=== PATIENT | female | born 1940 | race Caucasian/White ===

== ENCOUNTER → 2017-07-29 11:50 | Outpatient (CLI) | payer MEDICARE, OTHER, SELFPAY | PROVIDERS: Visit Provider Obstetrics & Gynecology | DX: Z87.440 Personal history of urinary (tract) infections (principal) | CPT/HCPCS: 87086 ==

== ENCOUNTER 2018-02-07 16:01 | Emergency (ER) | payer MEDICARE, OTHER, SELFPAY ==
[2018-02-07 16:02] VITALS: BP 163/91; PULSE 86; RESP 16; TEMP 36.3; O2SAT 98; BMI 21.4
--- NOTE | 2018-02-07 16:39 | ED.VISSUMM ---
- ER Visit Summary Date of Service: 02/07/18 Chief Complaint: Fall History of Present Illness: The patient is a 77 F who presents after a fall. She was out walking when she tripped and fell forward onto concrete striking left side of her head. There was no loss of consciousness. No amnesia. She states she stood up out just as quick as I fell. She has been able to ambulate without difficulty. She complains of slight headache. No vomiting. She is not anticoagulated. She does have a laceration above her left eyebrow. Physical Examination: Afebrile vitals are stable There is a 1 x 1 cm V-shaped laceration above left eyebrow and a second 2 cm linear laceration GCS of 15 with no focal or lateralizing neurological deficits Heart regular rate and rhythm Lungs are clear Abdomen soft Test Results: Deferred Emergency Department Course and Treatment: Patient has a GCS of 15 she is not anticoagulated she denies having headache or vomiting. I discussed with her that as she is over the age of 67 clinical decision rules could not be used to say that she does not require imaging however my clinical suspicion for clinically significant traumatic brain injury is very low. We discussed risks and benefits of imaging and return precautions. Patient would prefer to defer on any imaging at this time. She does understand return for new or worsening symptoms was given clear return precautions and signs and symptoms to monitor for. Her laceration was anesthetized with local lidocaine and closed with a total of 7 simple interrupted 5-0 nonabsorbable sutures. She was instructed on wound care. She understands to return for new or worsening symptoms and was discharged home. Treatment Plan: [] Disposition: Discharge Impression: Post head injury Facial laceration This note was generated with [employer] dictation software. It may contain incorrect words, spelling, and punctuation that were not noted in review of the chart prior to signing ED Disposition - Plan for ED Patient: Chief Complaint: Laceration Referrals: Florina Dai MD [Primary Care Provider] -
--- NOTE | 2018-02-07 16:42 | ED.DEP ---
ED Disposition - Plan for ED Patient: Chief Complaint: Laceration Instructions: ED Laceration Facial Sutr Tape Referrals: Florina Dai MD [Primary Care Provider] -
== END 2018-02-07 16:53 | disposition home or self-care (01) ==
PROVIDERS: Emergency Provider Emergency Medicine; Family Provider Family Medicine; PCP Family Medicine
DX: S01.81XA Laceration without foreign body of other part of head, initial encounter (principal); W01.0XXA Fall on same level from slipping, tripping and stumbling without subsequent striking against object, initial encounter; Y93.01 Activity, walking, marching and hiking; Y92.89 Other specified places as the place of occurrence of the external cause; Y99.8 Other external cause status
CPT/HCPCS: 12013; 99283

== ENCOUNTER 2019-08-17 11:30 | Outpatient (RCR) | payer MEDICARE, OTHER, SELFPAY ==
--- NOTE | 2019-07-06 11:48 | HP.PTEVAL ---
Patient's Visit Information DIEGO KNOTT is a 78 year old F referred to Physical Therapy by Aaron Ross MD with a diagnosis of Right Knee Pain. Date of Evaluation: 07/06/19 Physical Therapist: Bibi Zavala DPT - Visit Plan Frequency: 2x /Week Duration: 4 Weeks Plan: Focus on LE and core strength/stabilization- US as modality as needed - Subjective Findings: Patient reports that she has been having trouble with her right knee- pain with function but does not stop her from doing anything. Has had x-rays which were negative. She has a puppy so she is walking him on hard pavement. No specific injury or falls. Pain is located on the medial joint line and distal. Describes the pain as dull and achy. The day the pain hit about a week ago she could not walk but now its getting better and better. Worst: 4/10 Agg: walking the puppy. She does square dance but has not tried that. Eases: sitting down, getting off of the knee. Best: 0/10. No N/T in the LE- Has never had an injury to this leg before. Does have back problems- that has been consistent- has a herniated disc and if she overdoes- the pain radiates to the left leg- always aware of back pain on the right but no serious flares recently. PMHx: none Meds: none. - Objective Posture: fair throughout- mild FH, RS if sitting for longer than a few minutes. Gait: no deviation noted. Stairs: asc/desc 8 recip - decreased control with descent. HR/TR: able with slight discomfort with TR. SLS: 15 sec without LOB. Palpation: tender along medial joint line. ROM: 0-125 degrees. Strength: Ankle: 5/5, Knee: 4+/5 Hip: 4+/5 Core: fair. Flex: HS: moderate, Gastroc: moderate. Special Test: Bhargav: positive - Goals Goal 1:: Patient will be I with HEP and progression Goal Time Frame: 4-6 Weeks Goal 2:: Patient will asc/desc 8 stairs recip with good control with descent Goal Time Frame: 4-6 Weeks Goal 3:: Patient will report 0/10 pain with all normal ADL's. Goal Time Frame: 4-6 Weeks Goal 4:: Patient will demo 5/5 strength in LE Goal Time Frame: 4-6 Weeks - Rehabilitation Potential Physical Therapy Diagnosis: Patient presents with hypomobility- she has decreased strength, flex and muscular endurance leading to decreased ability to perform ADL's without pain Rehabilitation Potential: Good - Anticipated Interventions Patient/Client Instruction: Educate patient on: Benefits of Fitness Program Therapeutic Exercise to Include: Strength training, Endurance training, Balance training, Coordination, Agility training, Body mechanics, Postural training, Flexibilty training, Gait and locomotor training, Passive ROM, Active ROM, Dynamic Lumbar Stabilization, Scapular Strength/Stabilization For the Purpose of:: To improve muscle performance and motor function TENS: Yes Cryotherapy (ice pack, ice massage): Yes Thermo therapy (hot pack): Yes Ultrasound (thermal/non thermal): Yes For the Purpose of:: To decrease pain Thank you for the opportunity to evaluate your patient. For Medicare and Medicare HMO plans, please review the plan of care and approve it. It will need to be FAXED BACK to us at [phone] for Medicare purposes. For Medicare only, by signing this I certify the plan of care. Please let me know if there are questions or concerns regarding this plan of care. Physician Signature: Date:
--- NOTE | 2019-07-29 12:47 | HP.PTREVAL_ITS ---
Aaron Ross MD, It has been my pleasure to treat DIEGO KNOTT over the last 9 visits for Right Knee Pain. Please see the progress note below for an update on the physical therapy plan of care! Subjective: Better if keep moving. Pain lately is minimal most days. Some days worse than others. Bad days less frequent. Thursday 4/10 pain, today is 0/10. Activities include square dancing whcih she has stopped. Sleep is OK. HEP: stretching adn ROM. and some strengthening. No concerns with them. Not scheduled with Dr. Martinez anytime soon. Objective/Function: Walks without pain or antalgia. Trasnfers off chair I iwthout UE or pain. Steps are ereciprocal without rail without pain and good ecc control. AROM is WFL adn strength is 5/5 in LE knee flexion adn ext without pain today. Plan Plan: f/u three weeks to ensure goals met without regular therapy. Check steps, gait, strength and d/c if doing well. Goals Goal 1:: Patient will be I with HEP and progression Goal Time Frame: 4-6 Weeks Goal Progress: Goal Met Goal 2:: Patient will asc/desc 8 stairs recip with good control with descent Goal Time Frame: 4-6 Weeks Goal Progress: Goal Met Goal 3:: Patient will report 0/10 pain with all normal ADL's. Goal Time Frame: 4-6 Weeks Goal Progress: Goal Met Goal 4:: Patient will demo 5/5 strength in LE Goal Time Frame: 4-6 Weeks Goal Progress: Goal Met Anticipated Interventions Patient/Client Instruction: Educate patient on: Benefits of Fitness Program Therapeutic Exercise to Include: Strength training, Endurance training, Balance training, Coordination, Agility training, Body mechanics, Postural training, Flexibilty training, Gait and locomotor training, Passive ROM, Active ROM, D ynamic Lumbar Stabilization, Scapular Strength/Stabilization For the Purpose of:: To improve muscle performance and motor function TENS: Yes Cryotherapy (ice pack, ice massage): Yes Thermo therapy (hot pack): Yes Ultrasound (thermal/non thermal): Yes For the Purpose of:: To decrease pain Please do not hesitate to contact me at [phone] by phone or if you have questions or concerns regarding this new plan of care! Sincerely, Nahum Jerald, DPT, OCS, CSCS
--- NOTE | 2019-08-17 11:46 | HP.PTDCSUM ---
HP - PT D/C Summary It has been my pleasure to treat DIEGO KNOTT under orders from Aaron Ross MD, for the diagnosis of Right Knee Pain for a total of 10 visit(s). Discharge Date: 08/17/19 Please see the following information for a summary of their discharge status. - Subjective Subjective: Been doing really well. Been doign exercises 2x/day. Feeling really good. Gradually improving. Did not have pain for a number of days. Last two days have been worse for some reason. Not sure why. Pain is above the knee at 2-4/10 intermittently. - Pain R knee Pain Intensity (Out of 10): 4 - Overall Improvement % Improvement: 95 - Objective Objective/Function: Full AROm R knee without pain, quad mildly tight R vs L. Strength 4+/5 B knees and 4/5 hips. Has some pain with SLR but otherwise doing well. Walks normal today and steps normala nd reciprocal without pain. Pain last couple days may have been due to increased walking over the nice , pt will watch and manage this. Has maintained goals nicely over last two weeks until Thursday. - Goals Goal 1:: Patient will be I with HEP and progression Goal Progress: Goal Met Goal 2:: Patient will asc/desc 8 stairs recip with good control with descent Goal Progress: Goal Met Goal 3:: Patient will report 0/10 pain with all normal ADL's. Goal Progress: Goal Met Goal 4:: Patient will demo 5/5 strength in LE Goal Progress: Goal Met - Plan Plan: d/c to HEP adding quad stretch adn pillow between knees at night. - D/C Information Discharge Comments: Pt to contact doctor if pain returns unmanageably. If there are questions or concerns regarding this patient's physical therapy, please feel free to call me at [phone]. Thank you for the referral of this patient. Sincerely, Nahum Marques, DPT, OCS, CSCS
== END 2019-08-17 19:00 | disposition home or self-care (01) ==
LOC: PT 11:30
PROVIDERS: Family Provider Family Medicine; PCP Family Medicine; Referring Provider Family Medicine; Visit Provider Family Medicine
DX: M25.561 Pain in right knee (principal)
CPT/HCPCS: 97035; 97110; 97161; 97164; 97530

== ENCOUNTER → 2019-08-19 09:28 | Outpatient (CLI) | payer MEDICARE, OTHER, SELFPAY ==
--- NOTE | 2019-08-18 12:15 | HP.PCM_ITS ---
History and Physical Date of Admission: 08/19/19 HISTORY AND PHYSICAL - BREAST COMPLAINT ? Aurelia Marcus 1940 ? ? REFERRING PHYSICIAN: ??Aaron Ross MD ? CHIEF COMPLAINT:???Left?breast microcalcifications -?superior medial quadrant anterior depth. ? HPI: The patient is a 78 year old female with a complaint of?an abnormal ma mmogram. ?The patient had a screening mammogram on July 11, 2019 with a follow-up diagnostic?mammogram on?August 09, 2019?which demonstrated: ? IMPRESSION: SUSPICIOUS FINDING - BIOPSY SHOULD BE CONSIDERED The grouped pleomorphic calcifications in the left breast are suspicious of malignancy. ?A stereotactic biopsy is recommended. ? Prior asymmetry is no longer seen in the right breast. There are a grouped pleomorphic calcifications in the left breast superior medial quadrant anterior depth. No other significant masses, calcifications, or other findings are seen in either breast. ? The patient denies a history of breast masses. ?She does??perform a self breast exam routinely. ?She notes no skin changes. ?She denies nipple discharge. ?She notes no axillary masses. ?She notes no family history of breast problems. ?She notes no significant breast trauma or breast difficulties in the past. ? The patient is being seen by me today at the request of Dr.?Aaron Ross MD?for my opinion and advice regarding microcalcifications in her left breast.? ? PAST MEDICAL HISTORY PAST MEDICAL HISTORY Diagnosis Date ? Angular cheilitis 05/05/2017 ? Arthritis of shoulder region, right 05/20/2016 ? Chronic low back pain 05/20/2016 ? Lumbar herniated disc 05/20/2016 ? 2009, ?With pinched nerve ? Migraine without aura and without status migrainosus, not intractable 09/02/2018 ? Mixed hyperlipidemia 05/20/2016 ? Osteopenia 05/20/2016 ? Hip: ?On [place] 03/2007-04/2008, 04/2009-04/2012, 04/2015-present ? ? Plantar fasciitis 05/20/2016 ? ? PAST SURGICAL HISTORY PAST SURGICAL HISTORY Procedure Laterality Date ? COLONOSCOPY ? 07/31/2014 ? repeat 10 yrs, ?Dr. Henry ? PAST SURGICAL HISTORY OF ? 09/12/2015 ? bladder lift for incontinence ? PAST SURGICAL HISTORY OF ? 2016 ? cataracts both (Jan and Feb) ? ? CURRENT MEDICATIONS Current Outpatient Medications Medication Sig Dispense Refill ? Magnesium 200 mg tab Take by mouth. ? ? ? Cholecalciferol, Vitamin D3, 1,000 unit cap Take 1 capsule by mouth once daily. ? ? ? cyanocobalamin (VITAMIN B-12) 1,000 mcg tab Take 1,000 mcg by mouth once daily. ? ? ? Red Yeast Rice Extract 600 mg cap Take 1 capsule by mouth twice daily. ? ? ? No current facility-administered medications for this visit.? ? ALLERGIES:?Patient has no known allergies. ? PERSONAL HISTORY:? SOCIAL HISTORY Social History ? Tobacco Use ? Smoking status: Never Smoker ? Smokeless tobacco: Never Used Substance Use Topics ? Alcohol use: Yes ? ? Comment: occasional glass of red wine ? Drug use: Not on file ? FAMILY HISTORY:? FAMILY HISTORY FAMILY HISTORY Problem Relation Age of Onset ? Breast Cancer Mother ? ? Heart Failure Mother ? ? Hypertension Father ? ? Hypertension Brother ? ? Breast Cancer Maternal Aunt ? ? REVIEW OF SYMPTOMS: ??The review of systems data was entered by the nurse and reviewed by me ? REVIEW OF SYSTEMS: ?General:???The patient denies?fatigue, denies?weight loss, denies?weight gain, denies?feeling hot, and denies?feelings of cold. ?Eyes: ?The patient denies?glaucoma, NOTES?eye injury/surgery, wears?glasses or contacts. ?Ear/Nose/Throat: ?The patient denies?allergies, denies?hayfever, denies?ear infections, and denies?bloody noses. ?Cardiovascular: ?The patient denies?chest pain, denies?heart disease, denies?high blood pressure,denies?cardiac stent, denies?prior heart attack, denies?irregular heart beat, NOTES?high cholesterol, ?denies?poor circulation, denies?heart failure, other cardiac issues, denies?claudication, denies?cold feet, denies?peripheral arterial stent. ?Respiratory: ?The patient denies?tuberculosis, denies?pneumonia, denies?frequent cough, denies?pulmonary embolism, denies?shortness of breath, and denies?coughing up blood. ?Gastrointestinal: ?The patient denies?difficulty swallowing, denies?acid reflux, denies?ulcers, denies?vomiting, denies?jaundice/hepatitis, denies?gallbladder problems, denies?black or tarry stools, denies?hemorrhoids, denies?bleeding from rectum, denies?diverticulitis, denies?constipation, denies?diarrhea, denies?loss of stool control, and denies?hernias. ?Kidney/Bladder: ?The patient denies?kidney stones, denies?urine infections, and denies?bloody urine. ?Skin: ?The patient denies?a history of skin cancer, denies?bleeding/changing moles, and denies?a history of skin rash. ?Neurologic: ?The patient denies?a history of epilepsy/convulsions, NOTES?headaches, denies?head/spinal injuries, and denies?stroke/TIA. ?Psychiatric: ?The patient denies?psychiatric medications, denies?depressio n, and denies?voices, denies?substance abuse. ?Endocrine: ?The patient denies?thyroid disorders, denies?diabetes, and denies?hormonal problems. ?Hematologic: ?The patient denies?a history of bruising, denies?bleeding, and denies?anemia, denies?blood clots. ?Infections: ?The patient NOTESa history of measles and mumps,?denies?rheumatic fever, and denies?sexually transmitted diseases. ?Musculoskeletal: ?The patient NOTES?back pain/injury, denies?back problems, denies?sciatica, NOTES?knee/foot trouble, denies?arthritis, or denies?gout. ? ? ? PHYSICAL EXAMINATION: ? General: ?The patient is 78 year old female, well nourished, well hydrated in no acute distress. ?The patient is oriented to time, place, and person. ? VITALS:?Blood pressure 118/58, pulse 85, temperature 36.2 ?C (97.2 ?F), temperature source Temporal, resp. rate 14, height 152.4 cm (5'), weight 49.4 kg (109 lb), SpO2 97 %.?Body mass index is 21.29 kg/m?.? ? HEENT: ?Normal cephalic, ataumatic, pupils are equally round, sclera are anicteric, mucous membranes are moist, oropharynx is clear. ?Neck has no masses, asymmetry or lymphadenopathy. ?Thyroid is unremarkable. ? Respiratory: ?Clear to auscultation and percussion. ?Normal respiratory excursion and pattern. ? Cardiac: ?Examination is regular rate and rhythm. ? Abdominal exam: ?Soft, nontender, ?with no palpable masses. ?No hepatosplenomegaly. ?No palpable hernias. ? Rectal exam: ?exam deferred Extremities: ?no clubbing, cyanosis or edema. ?No adenopathy. ? Breast: ?Visual inspection reveals no retractions, nipple inversion, or skin changes. ?Palpation of the right breast reveals no dominant or suspicious masses. ?Palpation of the left breast reveals no dominant or suspicious masses. ?Axillary exam demonstrates no suspicious masses in either the left or right axilla. ?There is no nipple discharge expressed from either the left or right breast. ? LABORATORY VALUES: As Noted ? RADIOLOGIC STUDIES: ?As Noted ? Assessment ? IMPRESSION:?Left breast microcalcifications ? PLAN:??I plan to perform a?stereotactic biopsy of the left breast. ?The planned surgical procedure was discussed extensively with the patient. ?The risks, benefits, anticipated outcomes and possible complications were mentioned. ?My staff has also explained the procedure in understandable terms and the patient was given the option to take printed material concerning the planned procedure. ?The patient had the opportunity to ask questions concerning the planned procedure. ?The patient freely consents to the planned procedure. ? Diagnoses:?(R92.8) Abnormal finding on breast imaging ?(primary encounter diagnosis) ? My findings have been communicated to Dr.??Aaron Ross MD?via shared medical record. ?This note will be forwarded to Dr. Aaron Ross MD. ? Return to Clinic: The patient is instructed to follow-up with me?after the testing has been completed. ? Gato Waters MD
--- NOTE | 2019-08-19 | IMM_PTH ---
PATIENT: DIEGO KNOTT LOC: [facility] U#:[id number] AGE/SX: 84/F ROOM: RE08/19/[address]: Dr. Gato Waters MD : 1940 BED: DIS: SPEC #: [id number] RECD: 08/22/19 14:17 STATUS: BASSAM REQ #: [id number] [facility]: 08/19/19 00:[address]: Gato Waters DEPT: IMMUNOHISTOCHEMISTRY RECD BY: Evelyne Jeong ENTERED: 08/22/19 14:18 SP TYPE: IMMUNO OTHR DR: Dr. Aaron Ross MD Tissues: Left breast, NOS Procedures: CALPONIN-1 (add) CK8 (add) E-CAD (add) HER2 CHRISTOPHER (add) TN (add) P40 (add) ER (initial) PHYSICIAN & INSTITUTION [place] [id number] SPECIMEN INFORMATION: Tissue Source: Left breast, stereotactic core biopsy Clinical Info: Left superior medial breast microcalcifications Specimen Number: [id number] #1 CPT code: 27468, 11995 x3, 49562 x3 METHODOLOGY: Deparaffinized sections of prefer/formalin-fixed tissue or PAP/DQ stained slides are incubated with monoclonal/polyclonal antibodies/oligonucleotide probes. Localization is made via biotin free immunoperoxidase method. Appropriate controls are performed and reacted as expected. Results on target cell population are indicated in the following table: RESULTS: ANTIBODY / CLONE RESULT Block 1 E-Cad (ECH-6) positive CK8 ([id number]) positive Calponin-1 (RV009B) positive P40 (BC28) positive MORPHOMETRIC ANALYSIS ER (clone 6F11) positive (>95%, strong intensity) TN (clone 16/1E2) positive (90%, moderate intensity) Her-2Neu (clone CB11) negative (0) The prognostic test for HER2 is performed on formalin-fixed paraffin embedded tissue. A 3+ (positive) staining pattern is defined as intense, homogeneous, complete, circumferential membranous staining in >10% of contiguous tumor cells. A similar weak (2+) staining pattern is interpreted as equivocal. ROSETTA follow-up testing is recommended for all equivocal cases. Positivity/negativity for ER/TN is reported if > or < 1% of the tumor cells are immuno- reactive, respectively. The ASCO/CAP criteria is used for scoring. Reference: Journal of Clinical Oncology, 2013; 31:1537-9000 & 2010; 16:5875-6620. Duration of fixation: 57 Hrs; Sample Adequate: Yes. These assays have not been validated on decalcified tissues. Results should be interpreted with caution given the likelihood of false negativity on decalcified specimens. These tests were developed and their performance characteristics determined by [facility]. They may not have been cleared or approved by the U.S. Food and Drug Administration. The FDA has determined that such clearance or approval is not necessary. The above immunohistochemical/dualISH markers are ordered and reviewed by the Pathologist. 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 SJ:ken 08/23/19
--- NOTE | 2019-08-19 10:15 | BRBX_PTH ---
PATIENT: DIEGO KNOTT LOC: [facility] U#:[id number] AGE/SX: 84/F ROOM: RE08/19/[address]: Dr. Gato Waters MD : 1940 BED: DIS: SPEC #: [id number] RECD: 08/19/19 11:33 STATUS: BASSAM RENelly #: [id number] [facility]: 08/19/19 10:[address]: Gato Waters DEPT: SURGICAL PATHOLOGY RECD BY: Zoey Ambrose ENTERED: 08/19/19 12:10 SP TYPE: BREAST BX OTHR DR: Dr. 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 Nuclear Grade - grade 2 (intermediate) Necrosis - present, central (expansive comedo necrosis). Calcifications - present See comment. CALISTA:ken 08/22/19 COMMENT Immunohistochemistry ([id number]) supports the above diagnosis. ER/CA/Swv2tao studies are being performed on sections of tumor and the results from this study will be reported separately ([id number]). MICROSCOPIC DESCRIPTION Slides are reviewed. GROSS DESCRIPTION Received is one container labeled with the patient's name and not further designated. The specimen consists of multiple elongated fragments of kendall-yellow fibroadipose tissue that in aggregate measure 5 x 3 x 0.3 cm. The entire specimen is submitted in two cassettes. / CALISTA:ken 08/19/19 TC:0 CPT: 48962
--- NOTE | 2019-08-19 12:39 | OP.PCM_ITS ---
Report of Operation Date of Procedure: 08/19/19 Pre-Operative Diagnosis: left breast micro- calcifications Post-Operative Diagnosis: successful stereotactic biopsy of left breast microcalcifications Surgery/Procedure Performed:: left stereotactic breast biopsy with vacuum- assisted core needle biopsy, specimen radiograph and marker placement family services coordinator: None Type of Anesthesia:: Local Specimen's removed: left breast tissue Description of Procedure: The patient was brought to the stereotactic suite and informed of the plan course of events. The left breast was positioned in the CC approach on the Hackett stereotactic table. Mammographic image demonstrated the area of abnormality to be located in the center of the radiograph. Stereotactic images were then obtained which demonstrated good positioning of the abnormality for biopsy with good stroke leela parameters. The breast was cleaned with Betadine area did one percent lidocaine was used to anesthetize the skin and a small stab incision made. An 8-gauge mammotome needle was placed into the pre-fire position. Stereotactic images demonstrated good positioning around the planned biopsy site. Local anesthetic injected deeply in the breast. The needle was deployed. Post deployment images demonstrated good positioning of the planned biopsy site. Multiple vacuum-assisted samples were obtained and [id number] fashion. Specimen radiograph demonstrated micro-calcifications in the sample. A gel marker clip was deployed. Post biopsy images demonstrated good position of the clip relative the biopsy cavity. The breast was removed from compression. suture was placed to help close the slightly gaping wound and then Steri-Strips and a dressing applied. Post procedure mammogram images were obtained.
== END ==
PROVIDERS: PCP Family Medicine; Referring Provider Surgery; Visit Provider Surgery
DX: R92.8 Other abnormal and inconclusive findings on diagnostic imaging of breast (principal)
CPT/HCPCS: 19081; 88305; 88341; 88342; J7050

== ENCOUNTER 2019-10-20 07:30 | Day surgery (SDC) | payer MEDICARE, OTHER, SELFPAY ==
[2019-09-14 14:16] VITALS: BMI 21.4
--- NOTE | 2019-10-20 | BREAST_PTH ---
PATIENT: DIEGO KNOTT LOC: [facility] [place] U#:[id number] AGE/SX: 78/F ROOM: RE10/20/[address]: Dr. Shen Jacob MD : 1940 BED: DIS: 10/20/2019 SPEC #: [id number] RECD: 10/20/19 11:01 STATUS: BASSAM NAVDEEP #: [id number] [facility]: 10/20/19 00:[address]: Shen Jacob DEPT: SURGICAL PATHOLOGY RECD BY: Kenyon Billings ENTERED: 10/20/19 11:01 SP TYPE: BREAST OTHR DR: Dr. 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 See cancer checklist below. AM:ken 10/26/19 COMMENT DUCTAL CARCINOMA IN SITU SUMMARY: Procedure: excision with wire guidance Specimen: Type - partial breast (lumpectomy) Size - 6 x 4.5 x 2.5 cm Laterality - left breast Size (extent of DCIS): Estimated size (extent) - 8 mm in greatest dimension Number of blocks - 4 of 10 blocks Architectural pattern - cribriform and solid Nuclear grade - 3 Necrosis - comedo, focal Margin - uninvolved by in situ carcinoma. Distance of closest margin - 2 mm from anterior margin Regional lymph nodes - not submitted Microcalcifications - present in neoplastic and non-neoplastic tissue. Additional Pathologic Findings - fibrocystic change, intraductal hyperplasia with focal atypical intraductal hyperplasia. Ancillary Studies from previous specimen ([id number] / [id number]): ER - positive (>95%, strong intensity) VT - positive (90%, moderate intensity) Her2 carlin (IHC) - negative by IHC Clinical history - left breast microcalcifications. Pathologic Staging: Tis(DCIS) Nx Mx The above summary is in compliance with [employer] (CAP) Cancer Protocols Checklist and [place] Joint Committee on Cancer (AJCC), Staging Manual, 8th Ed. Case has been reviewed in consultation with Dr. Lozano who concurs with the above diagnosis. IDC:SJ MICROSCOPIC DESCRIPTION Slides are reviewed. GROSS DESCRIPTION Received in fixative is one container labeled with the patient's name and designated left breast lumpectomy. The specimen consists of a wire-guided fragment of kendall-yellow fibrofatty tissue measuring 6 x 4.5 x 2.5 cm and weighing 24 gm. The specimen has been oriented by the surgeon and differentially inked as follows: anterior - yellow, posterior - black, superior - blue, inferior - green, medial - red and lateral - orange. The specimen is serially sectioned in an anterior and posterior fashion to reveal yellow cut surfaces. No distinct mass lesion is identified. The specimen is left for additional fixation. / AM:ken 10/20/19 Sections reveal yellow cut surfaces. A firm, kendall-white lesion measuring 0.8 cm is present and located 0.5 mm from the anterior margin of resection. The remainder of the breast parenchyma is yellow, fatty and free of mass lesions. Sections are submitted as follows: 1 & 2 - perpendicular margins, 3 & 4 - lesion, 512 - [employer] sections of breast parenchyma adjacent to and away from lesion. / AM:ken 10/21/19 TC:0 CPT: 58945
[2019-10-20 07:55] VITALS: BP 132/71; PULSE 74; RESP 18; TEMP 36.8; O2SAT 100; BMI 20.9
--- NOTE | 2019-10-20 08:00 | BI_ITS ---
SURGICAL BREAST SPECIMEN RADIOGRAPH CLINICAL: Document presence of tissue clip marker in biopsy specimen. FINDINGS: Specimen shows presence of tissue clip marker. Electronically Signed: Matt Ramirez, at 10:37 EDT , Service support , BI/Breast Biopsy Specimen
[2019-10-20] MEDS: Lactated Ringers 1,000 ML 15 ML IV (08:06)
--- NOTE | 2019-10-20 09:15 | DCINST_ITS ---
Discharge Diet: No Restrictions Discharge Activity: May Not Drive - for 2-3 days or while taking narcotic pain meds. May shower in (days): 1 Lifting Restrictions: 10 pounds for 1 week. Call your doctor if your incision/area has: Continuous Slow Oozing, Sudden In creased Bleeding Call your doctor if you observe: Fever of 101 or Higher Suture Line Care: Avoid Pulling/Pushing, Avoid Pinching/Bending Remove Dressing in (days):: 1 - Remove bulky dressing tomorrow. May leave any opsite dressing for 3-4 days. Keep dressing in place until your follow-up appointment. Additional Dressing/Incision Instructions:: Remove bulky dressing tomorrow. May leave any opsite dressing for 3-4 days. Keep dressing in place until your follow-up appointment. Allergies/Adverse Reactions: Allergies No Known Allergies Allergy (Verified 10/18/19 09:40) Medications to take at Discharge Red Yeast Rice 1,200 mg PO DAILY 02/07/18 Calcium Carbonate [Tums] 500 mg PO DAILY@0800 10/18/19 Cholecalciferol (Vitamin D3) [Vitamin D3] 25 mcg PO DAILY 10/18/19 Cyanocobalamin (Vitamin B-12) [Vitamin B-12] 1,000 mcg PO DAILY 10/18/19 Ibuprofen [Advil] 200 mg PO PRN PRN 10/18/19 Magnesium Oxide [Magnesium] 400 mg PO DAILY 10/18/19 Primary Care Physician: Aaron Ross MD [Primary Care Provider] - Please Follow Up With: Shen Jacob MD When: [phone] Office f/u one week, Virtual if possible
--- NOTE | 2019-10-20 09:16 | OP.PCM_ITS ---
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 Wire localized lumpectomy upper inner left breast Description of Surgical Findings:: Timeout and informed consent was obtained. 78-year-old female was taken to the stereotactic unit placed prone on table. The left breast was placed in a medial lateral view. A marking clip and microcalcifications identified. Stereotactic images were obtained. Digital information was obtained on a single target site. The breast was prepped with Betadine. 1% lidocaine was used as local anesth etic. The needle was placed at depth +15 mm. Wire was displaced. On fast view was obtained demonstrating good localization. The wire was secured. The patient had a cc view obtained. Sterile dressings were applied. She was subsequently taken to the operating for planned definitive surgery. The patient was subsequently taken to the operating room. She underwent general anesthesia. Left breast was sterilely prepped and draped. Transverse incision was made in the upper inner left breast. Sharp dissection carried down through the subcutaneous tissue. Electrocautery dissection was performed circumferentially completely around the wire localized area. Hemostasis was obtained with electrocautery and fokrvr-xy-rgnap suture of 3-0 Vicryl. The specimen was removed. The wire exited anteriorly a suture was placed superiorly and a long suture laterally. The cavity was intact. 4 marking clips were placed at the edges of the resection of the lumpectomy. Deep tissue approximated with simple sutures of 3- 0 Vicryl. The skin edges approximated running septic or 4-0 Monocryl. Steri- Strips Telfa OpSite bulky dry dressing applied. The jesse-incisional area had been anesthetized with 30 cc of 0.5% Marcaine. Sponge and instrument and needle counts were reported the surgeon to be correct. Specimen lumpectomy. Drains none. Blood loss minimal. The patient was taken to the recovery room in satisfactory addition without apparent complication Shen Jacob M.D., F.A.C.S. Type of Anesthesia:: General Anesthesiologist: Surya Davison
--- NOTE | 2019-10-20 09:22 | HP.PCM_ITS ---
Problem List (1) Ductal carcinoma in situ (DCIS) of left breast Status: Acute History and Physical Date of Admission: 10/20/19 Intake Visit Reasons: BREAST CANCER, LEFT Practice Or Student Teacher Required: No Is patient in pain?: No Allergies No Known Allergies Allergy (Verified 09/14/19 14:12) Medications Calcium Carbonate/Vitamin D3 [Calcium 500+D Tablet Chew] 1 ea PO DAILY 09/05/15 [History Confirmed 09/14/19] Multivitamins,Ther W-Minerals [Multivitamin With Minerals (BKC)] 1 tab PO DAILY 09/05/15 [History Confirmed 09/14/19] Red Yeast Rice 1,200 mg PO DAILY 02/07/18 [History Confirmed 09/14/19] Ubidecarenone [Co Q-10] 100 mg PO DAILY 02/07/18 [History Confirmed 09/14/19] PFSH Medical History (Updated 09/14/19 @ 16:[address] Shen Jacob MD) Ductal carcinoma in situ (DCIS) of left breast (Acute) Surgical History H/O breast biopsy (Acute) History of bladder suspension procedure (Acute) S/P cataract extraction (Acute) Family History Mother Breast cancer Heart disease Father Hypertension Brother Hypertension Aunt Breast cancer Social History (Updated 09/14/19 @ 16:[address] Shen Jacob MD) Smoking Status: Never smoker alcohol intake: never HPI HPI HPI: DIEGO KNOTT, is a 78 F who presents to the office today for for ongoing surgical consultation and treatment for DCIS medial left breast. Very pleasant 78-year-old female. Her primary care physician is Dr. Aaron Ross. She is recently been thoroughly evaluated by Dr. Gato Waters. The patient did not want to go to [facility] for her definitive surgery 78-year-old female. A0. Not sure when she underwent menarche. First child was born when she was 27. She did breast-feed. No previous breast biopsies up to her recent event. Family history notable that her mother developed breast cancer at approximately age 77 as did her maternal aunt. No estrogen replacement therapy. At the [facility] on July 11, 2019 with an follow-up diagnostic mammogram August 01, 2019 there were pleomorphic calcifications medial left breast. Superior medial quadrant. On the diagnostic films a prior asymmetry seen on the right was no longer seen. Dr. Rich performed a stereotactic needle core biopsy upper inner left breast. Final pathology from that procedure date August 19, 2019 demonstrates ER greater than 95% and CO greater than 90% and HER-2 negative at 0. Ductal carcinoma in situ. Solid and cribriform. Grade 2. Necrosis present centrally. Calcifications present. On my review of the specimens he had multiple cores with calcifications present. The calcifications on the mammogram do extend over a distance. HPI HPI HPI: DIEGO KNOTT, is a 78 F who presents to the office today for ROS General General: No weight change, appetite, fatigue, colon cancer, breast cancer or weakness HEENT HEENT: No difficulty swallowing, eye injury, eye surgery, swollen glands or hoarseness Endo Endocrine: No thyroid disease, diabetes mellitus, thyroid cancer, Hair loss, heat intolerance or cold intolerance Skin Skin: No rash or changing moles Breast Breast: Yes abnormal mammogram; no left breast lump, right breast lump, nipple discharge, breast pain, abnormal US or breast enlargement Musc Musculoskeletal: No back problems, arthritis, rheumatoid arthritis, gout or joint pain Cardio Cardiovascular: No murmur, pacemaker, heart disease, atrial fibrillation, high blood pressure, heart attack, heart stent, palpitations, shortness of breat with exertion or chest pain Psych Psychiatric: No depression, anxiety or hearing voices Resp Respiratory: No shortness of breath, No sleep apnea, No cough, No COPD, No asthma, No emphysema, No wheezing Gastro Gastrointestinal: No abdominal pain, No nausea or vomiting, No diarrhea, No constipation, No blood in stool, No acid reflux, No hemorrhoids, No ulcers, No gallbladder problem, No black,tarry stools Franco Hematologic: No blood thinners, No blood disorders, No bleeding, No anemia, No blood clots Neuro Neurologic: No system reviewed and no additional complaints, except as docu, No as per HPI, No abnormal walking, No abnormal hearing, No abnormal movements, No abnormal speech, No behavioral changes, No burning sensations, No confusion, No seizure-like activity, No unsteadiness, No dizziness, No localized weakness, No frequent falls, No headache(s), No lack of coordination, No loss of vision, No memory loss, No numbness, No other visual disturbances, No radiating pain, No restless legs, No sensory deficit, No fainting, No tingling, No tremor(s), No weakness, No other Exam Const General: cooperative, healthy appearing, comfortable, no acute distress Nutritional Appearance: average body habitus Orientation: alert, awake [facility] Head: normal to inspection Chest Breast Palpation: No nipple discharge Other: Right breast: No focal mass. No nipple discharge. No axillary or clavicular adenopathy Left breast ecchymosis healed stereotactic incision upper inner left breast slight induration, no axillary or clavicular adenopathy Resp Effort & Inspection: normal respiratory effort Auscultation: clear to auscultation bilaterally Cardio Rate: regular rate Rhythm: regular rhythm Heart Sounds: no murmurs GI Palpation: soft, no hepatosplenomegaly Neuro Cognition: normal cognition Extrem General: no calf tenderness bilaterally Psych Affect: normal affect Assessment & Plan Problems 1. Ductal carcinoma in situ (DCIS) of left breast D05.12 Plan DCIS upper inner left breast. I recommend to the patient a stereotactic wire localization with 2 wires to bracket the rather generous area of microcalcifications within subsequent lumpectomy. As a result of the September 06, 2019 order by the [facility] of Health director Giana Estrada MD to cancel nonessential surgeries that would use PPE, and less special criteria are met, I have reviewed the clinical record for this patient and have determined that the schedule procedure does not meet criteria to go forward and should be canceled pursuant to director Natalie's order. The procedure will be rescheduled as soon as possible after the September 06, 2019 emergency order has been lifted We will refer the patient for medical oncology consultation and hormonal therapy while awaiting definitive surgery CC: Dr. Aaron Jacob M.D., F.A.C.S. Coding Level of Care Code Off vis,new,level 4 Diagnoses Ductal carcinoma in situ (DCIS) of left breast D05.12 The patient's health and wellbeing has been stable since her previous office vis it. We have again discussed plans for stereotactic wire localization upper inner left breast with subsequent wire localized lumpectomy. She has had an opportunity to ask and have questions answered. We will proceed as noted. She has no additional questions at this time. Shen Jacob M.D., F.A.C.S.
[2019-10-20] MEDS: Bupivacaine Mpf 0.5% 30 ML VIAL (10:00)
[2019-10-20 10:30] VITALS: BP 132/71; BP 137/72; PULSE 65; RESP 16; TEMP 36.6; O2SAT 97
[2019-10-20 10:45] VITALS: BP 132/71; BP 134/73; PULSE 62; RESP 16; O2SAT 97
[2019-10-20 11:00] VITALS: BP 119/67; BP 132/71; PULSE 66; RESP 16; O2SAT 94
[2019-10-20 11:15] VITALS: BP 121/69; BP 132/71; PULSE 62; RESP 16; TEMP 36.7; O2SAT 65
[2019-10-20 11:59] VITALS: BP 132/71; BP 133/75; PULSE 58; RESP 16; TEMP 36.2; O2SAT 96
== END 2019-10-20 12:08 | disposition home or self-care (01) ==
LOC: SDC 07:30 → AC 07:31
PROVIDERS: PCP Family Medicine; Referring Provider Surgery; Visit Provider Surgery
PROC: (CPT 19301; principal; 2019-10-20 09:15)
DX: D05.12 Intraductal carcinoma in situ of left breast (principal); R92.1 Mammographic calcification found on diagnostic imaging of breast
CPT/HCPCS: 19301; 19281; 76098; 88307; J7120; J2405

== ENCOUNTER → 2020-04-06 09:00 | Outpatient (CLI) | payer MEDICARE, OTHER, SELFPAY ==
[2020-04-06 09:27] LABS: Bacteria 0 SEEN /hpf (None Seen); Mucous, Urine 0 SEEN /hpf (<or=2+)
[2020-04-06 09:29] LABS: Color, Urine Straw (Yellow); Glucose, Dipstick Normal (Normal); Ketone-Dipstick Negative (Negative); Leukocyte Esterase-Dipstick 25 /ul (Negative); Nitrite-Dipstick Negative (Negative); Occult Blood-Urine 25 /ul (Negative); Protein-Dipstick Negative (Negative); Urine Bilirubin Dipstick Negative (Negative); Urine Clarity Clear (Clear); Urine Urobilinogen Normal (Normal)
[2020-04-06 09:41] LABS: Red Blood Cells-Urine 0-5 SEEN /hpf (0-5); Squamous Epithelial Cells - UA 0-5 SEEN /hpf (5-10); White Blood Cells 0-5 SEEN /hpf (0-5)
[2020-04-06 09:47] LABS: ALB/GLOB Ratio 1.2 RATIO (0.9-2.4); AST(SGOT) 29 U/L (15-37); Alanine Aminotransfer ALT/SGPT 29 U/L (13-56); Alkaline Phosphatase 88 U/L (45-117); Anion Gap 5 (5-15); BUN 14 mg/dL (7-18); BUN/Creat Ratio 18.4 RATIO (10-20); Calcium,Total 9.3 mg/dL (8.5-10.1); Chloride 105 mmol/L (98-107); Cholesterol 232 mg/dL (200); Creatinine, Serum 0.76 mg/dL (0.55-1.02); EST Glomerular Filtration Rate 78 mL/min (>60); Est Glom Filt Rate - Afr Amer 95 mL/min (>60); Globulin 3.3 g/dL (2.2-4.2); Glucose 94 mg/dL (74-106); High Density Lipoprotein 61 mg/dL; Potassium 4.3 mmol/L (3.5-5.1); Protein, Total 7.3 g/dL (6.4-8.2); Sodium Level 140 mmol/L (136-145); Triglycerides 103 mg/dL; Very Low Density Lipoprotein 21 mg/dL (5-40)
== END ==
PROVIDERS: PCP Family Medicine; Referring Provider Family Medicine; Visit Provider Family Medicine
DX: M85.80 Other specified disorders of bone density and structure, unspecified site (principal); G43.009 Migraine without aura, not intractable, without status migrainosus; E78.2 Mixed hyperlipidemia
CPT/HCPCS: 36415; 80053; 80061; 81001

== ENCOUNTER → 2021-04-11 08:48 | Outpatient (CLI) | payer MEDICARE, OTHER, SELFPAY ==
[2021-04-11 09:46] LABS: Hematocrit 46.5 % (37-47); Mean Corp Hgb Conc 32.3 g/dL (32-36); Mean Corpuscular Volume 86.9 fL (81-99); Mean Platelet Vol. 9.8 fl (6.2-12.0); Platelet Count 339 K/mm3 (150-450); RBC Distribution Width CV 13.2 % (11.6-14.6); RBC Distribution Width SD 42.4 fl (35.1-43.9); Red Blood Count 5.35 M/mm3 (4.2-5.4); White Blood Count 7.2 K/mm3 (4.4-11.0)
[2021-04-11 10:17] LABS: Vitamin B12 1291 pg/mL (211-911)
[2021-04-11 10:30] LABS: AST(SGOT) 25 U/L (15-37); Alanine Aminotransfer ALT/SGPT 20 U/L (13-56); Albumin, Serum 3.8 g/dL (3.2-5.0); Alkaline Phosphatase 115 U/L (45-117); Anion Gap 4 (5-15); BUN 12 mg/dL (7-18); BUN/Creat Ratio 16.4 RATIO (10-20); Calcium,Total 8.9 mg/dL (8.5-10.1); Chloride 106 mmol/L (98-107); Cholesterol 207 mg/dL (200); Creatinine, Serum 0.73 mg/dL (0.55-1.02); EST Glomerular Filtration Rate 82 mL/min (>60); Est Glom Filt Rate - Afr Amer 99 mL/min (>60); Globulin 3.8 g/dL (2.2-4.2); Glucose 90 mg/dL (74-106); High Density Lipoprotein 58 mg/dL; Potassium 3.8 mmol/L (3.5-5.1); Protein, Total 7.6 g/dL (6.4-8.2); Sodium Level 140 mmol/L (136-145); Thyroid Stim Hormone (TSH) 2.46 uIU/mL (0.358-3.74); Triglycerides 122 mg/dL; Very Low Density Lipoprotein 24 mg/dL (5-40)
[2021-04-13 16:35] LABS: Vitamin D 1,25-Dihydroxy 44.1 pg/mL (19.9-79.3)
[2021-04-16 14:58] LABS: Vitamin B1, Thiamine 147.1 nmol/L (66.5-200.0)
== END ==
PROVIDERS: PCP Family Medicine; Referring Provider Psychiatry & Neurology Neurology; Visit Provider Psychiatry & Neurology Neurology
DX: G31.84 Mild cognitive impairment of uncertain or unknown etiology (principal); E78.00 Pure hypercholesterolemia, unspecified; M85.80 Other specified disorders of bone density and structure, unspecified site
CPT/HCPCS: 36415; 80053; 80061; 82607; 82652; 82746; 84425; 84443; 85027

== ENCOUNTER → 2021-04-22 10:18 | Outpatient (CLI) | payer MEDICARE, OTHER, SELFPAY ==
--- NOTE | 2021-04-22 10:40 | MRI_ITS ---
EXAM: MR HEAD WITHOUT AND WITH INTRAVENOUS CONTRAST : 1940 CLINICAL INDICATION: Mild Cognitive Impairment TECHNIQUE: Multiplanar and multisequence MR images of the brain were obtained without and with intravenous contrast. This report was created using [employer] report generation technology. CONTRAST: IV 10mL Dotarem COMPARISON: None. FINDINGS: BRAIN AND EXTRA-AXIAL SPACES: There is a normal-variant cavum septi pellucidi and cavum vergae. No abnormal contrast enhancement. Multiple foci of increased T2 signal intensity within the cerebral white matter consistent with gliosis/chronic microvascular disease. No intra- or extra-axial hemorrhage. No evidence of acute infarct. No intracranial mass or mass effect. There is preservation of the ricci/white matter interface. Posterior fossa structures are unremarkable. Ventricles are appropriate for age. No hydrocephalus. Basal cisterns are patent. SELLA: Unremarkable. Normal sella turcica, pituitary gland, infundibular stalk, optic chiasm and hypothalamus. AUDITORY SYSTEM: Unremarkable. The internal auditory canals are patent. BONES/JOINTS: Unremarkable. No discrete lytic or blastic abnormalities. SINUSES: Unremarkable as visualized. Clear. MASTOID AIR CELLS: Unremarkable as visualized. Clear. ORBITS: Unremarkable as visualized. Both globes, extraocular muscles, optic nerves and retrobulbar fat appear unremarkable. VASCULATURE: Unremarkable as visualized. Normal flow voids in the major intracranial circulation. MRI/Brain W/WO Contrast IMPRESSION: 1. No acute intracranial abnormality. 2. Mild senescent changes. at 1220 Reported and signed by: Ulysses Oreilly MD Electronically Signed: Ulysses Oreilly MD at 12:19 EDT Tel , Service support ,
== END ==
PROVIDERS: PCP Family Medicine; Visit Provider Psychiatry & Neurology Neurology
DX: G31.84 Mild cognitive impairment of uncertain or unknown etiology (principal)
CPT/HCPCS: 70553; A9575

== ENCOUNTER 2021-07-29 13:49 | Outpatient (CLI) | payer MEDICARE, OTHER, SELFPAY ==
[2021-07-29 15:17] LABS: Erythrocyte Sedimentation Rate 9 mm/hr (0-30)
[2021-07-29 15:21] LABS: Hematocrit 42.2 % (37-47); Hemoglobin 15.1 g/dL (12.0-15.0); Mean Corp Hgb Conc 35.8 g/dL (32-36); Mean Corpuscular Volume 83.9 fL (81-99); Mean Platelet Vol. 10.5 fl (6.2-12.0); Platelet Count 331 K/mm3 (150-450); RBC Distribution Width CV 12.7 % (11.6-14.6); RBC Distribution Width SD 38.5 fl (35.1-43.9); Red Blood Count 5.03 M/mm3 (4.2-5.4); White Blood Count 8.5 K/mm3 (4.4-11.0)
== END 2021-07-29 23:59 | disposition home or self-care (01) ==
PROVIDERS: PCP Family Medicine; Referring Provider Psychiatry & Neurology Neurology; Visit Provider Psychiatry & Neurology Neurology
DX: D05.12 Intraductal carcinoma in situ of left breast (principal); R51.9 Headache, unspecified
CPT/HCPCS: 36415; 85027; 85652

== ENCOUNTER → 2022-10-16 | Outpatient (CLI) | payer MEDICARE, OTHER, SELFPAY ==
--- NOTE | 2022-10-16 11:40 | RAD_ITS ---
INDICATION: ABN CXR EXAMINATION/TECHNIQUE: X-RAY - XR Chest 2 Views COMPARISON: 09/03/2015. FINDINGS: LINES/DEVICES: None. LUNGS: Increased aeration consistent with strong inspiratory effort and/or COPD. No consolidation, edema or effusion. No pneumothorax. MEDIASTINUM AND CARDIOVASCULAR STRUCTURES: Cardiac silhouette not enlarged. Central airways and mediastinal contour are unremarkable. BONES AND SOFT TISSUES: Mild pectus excavatum. Mild osteopenia. Able exam. RAD/Chest PA and Lateral IMPRESSION: Increased aeration consistent with COPD and/or strong inspiratory effort. Pectus excavatum. Electronically Signed: Sonido Villarreal MD, RAJWINDER at 19:19 EDT ,
== END | disposition home or self-care (01) ==
LOC: RAD 11:29
PROVIDERS: PCP Family Medicine; Referring Provider Family Medicine; Visit Provider Family Medicine
DX: R93.89 Abnormal findings on diagnostic imaging of other specified body structures (principal)
CPT/HCPCS: 71046

== ENCOUNTER 2023-12-24 19:10 | Emergency (ER) | payer MEDICARE, OTHER, SELFPAY ==
[2023-12-24 19:12] VITALS: BP 161/77; PULSE 58; RESP 16; TEMP 36.8; O2SAT 94; BMI 23.9
--- NOTE | 2023-12-24 19:18 | EDS_ITS ---
HPI HPI - Fall History of Present Illness Chief Complaint: Fall Informant: patient and EMS Narrative Narrative: 83-year-old female presenting to the emergency department presenting to the emergency department following a fall. Patient states that she was cleaning her laminate wood floors when she slipped and fell backwards. She states she has pain in the low back and struck her head without loss of consciousness. She notes soreness of her neck. She notes pain in the left wrist with swelling. EMS placed a vacuum splint. She denies taking any blood thinners. [facility] Medical History Frequent headaches High cholesterol Osteopenia Cataracts, bilateral Back problem Seasonal allergies Ductal carcinoma in situ (DCIS) of left breast Home Medications ?Medication ?Instructions ?Recorded ?Last Taken ?Type red yeast rice 600 mg capsule 1,200 mg PO DAILY 02/07/18 Unknown History ibuprofen 200 mg tablet 200 mg PO PRN PRN Pain Or Fever 10/18/19 Unknown History coenzyme Q10 100 mg capsule 100 mg PO DAILY 07/29/21 Unknown History (CoQ-10) donepezil 10 mg tablet 10 mg PO QHS #30 tabs 07/16/23 Unknown Rx memantine 14 mg capsule 14 mg PO DAILY #7 ea 07/16/23 Unknown Rx sprinkle,extended release 24hr memantine 21 mg capsule 21 mg PO DAILY #7 ea 07/16/23 Unknown Rx sprinkle,extended release 24hr memantine 28 mg capsule 28 mg PO DAILY #30 ea 07/16/23 Unknown Rx sprinkle,extended release 24hr memantine 7 mg capsule 7 mg PO DAILY #7 ea 07/16/23 Unknown Rx sprinkle,extended release 24hr oxycodone-acetaminophen 5 mg-325 1 tab PO Q6H PRN PRN Pain 3 days 12/24/23 Unknown Rx mg tablet #12 TABLETS Allergy/AdvReac Type Severity Reaction Status Date / Time No Known Allergies Allergy Verified 12/24/23 19:12 Family History Mother Breast cancer Heart disease Father Hypertension TIA (transient ischemic attack) Brother Hypertension Aunt Breast cancer Uncle Lung cancer Surgical History History of lumpectomy of left breast (~10/2019) S/P cataract extraction H/O breast biopsy History of bladder suspension procedure Social History Smoking Status: Never smoker Electronic Cigarette Use: not used second hand exposure: No alcohol intake: current alcohol intake frequency: holidays/special occasions only Alcohol type: wine substance use type: does not use what type of physical activity do you participate in: walking frequency: daily jenny/temple: None seatbelt use: always ROS ROS ED Constitutional Constitutional ED: Denies chills, fever(s) or weight loss Eyes Eyes: Denies change in vision or diplopia ENT ENT ED: Denies ear pain, rhinorrhea or sore throat Cardiovascular Cardiovascular: Denies chest pain, orthopnea, palpitations or racing heartbeat Respiratory/Chest Respiratory/Chest: Denies cough, dyspnea or orthopnea Gastrointestinal Gastrointestinal: Denies abdominal pain, diarrhea, nausea or vomiting Genitourinary Genitourinary ED: Denies dysuria, hematuria or urinary frequency Musculoskeletal Musculoskeletal: Reports back pain, neck pain and other; Denies arthralgias or myalgias Integumentary Denies abscess or rash Neurologic Neurologic: Reports headache(s); Denies weakness Psychiatric Psychiatric: Denies anxiety, depression, suicidal ideation or suicidal thoughts Endocrine Endocrinology: Denies polydipsia, polyphagia or polyuria Allergic/Immunologic Allergic/Immunologic ED: Denies mouth swelling, tongue swelling or urticaria EXAM Physical Exam Const Vital Signs: 12/24/23 19:12 12/24/23 19:15 Temperature 98.2 F Temperature Source Oral Pulse Rate 58 L Respiratory Rate 16 Respiratory Effort Normal Respiratory Depth Normal Respiratory Pattern Normal Blood Pressure 161/77 H Blood Pressure Mean 105 Pulse Ox 94 Oxygen Delivery Method Room Air Room Air Positive well nourished and well developed General Appearance ED: well developed and NAD HEENT Reports normocephalic, head/scalp atraumatic and moist mucous membranes Eyes PERRL and EOMs intact bilaterally Neck full ROM, no lymphadenopathy, supple and no JVD Neck Narrative: Patient has generalized tenderness to palpation of the neck. Chest Wall inspection of chest normal and palpation of chest normal Resp normal respiratory effort and clear to auscultation bilaterally Cardio regular rate, regular rhythm and no murmurs GI normal to inspection, nondistended, normoactive bowel sounds and non-tender Palpation: soft Back/Spine no CVA tenderness Back/Spine Narrative: Patient with painful range of motion. Tenderness to palpation in the lumbar midline. Extremity Extremity Narrative: There is tenderness and swelling over the distal left wrist. Neurovascular intact. General Extremety ED: Negative for edema General Extremity: Negative for edema Neuro oriented x3 and CN's II-XII intact bilaterally Sensorium / Orientation: alert Motor Exam: strength 5/5 throughout Psych mental status grossly normal Mood & Affect: Negative for depressed or tearful Skin no rashes or lesions noted and no wounds MDM MDM MDM Narrative Medical decision making narrative: Differential diagnosis includes but not limited to skull fracture intracranial hemorrhage/hematoma, cervical spine fracture, lumbar spine fracture cervical and lumbar myofascial strains, pelvic fracture left wrist fracture left wrist sprain pelvic bone contusion Patient received morphine Zofran and IV fluids. My independent interpretation of the plain films of the pelvis is no acute fracture. My independent interpretation of the plain films of the left wrist is an acute comminuted intra-articular slightly dorsally displaced fracture. CT of the brain cervical spine and lumbar spine was obtained. These films were read by radiology reviewed by myself. No obvious acute intracranial hemorrhage or fracture was noted. Patient was placed in a plaster AP well-padded splint made by this physician. Neurovascularly intact pre and post application. Son is with the patient. History & Record Review Discussion w/independent historian: EMS personnel, Patient and Family Radiography Diagnostic Testing: Clinical Impression(s) from Imaging Studies Brain CT 12/24/23 19:35 IMPRESSION: No acute abnormality. Chronic microvascular ischemic disease. Electronically Signed: Samina Flowers MD at 20:16 EDT Reading Location ID and State: [facility] / [place] Tel , Service support , Cervical Spine CT 12/24/23 19:35 IMPRESSION: No evidence of fracture or traumatic subluxation. Minimal anterolisthesis at C3-4 and C4-5 likely secondary to the degenerative changes. Electronically Signed: Samina Flowers MD at 20:20 EDT Reading Location ID and State: [facility] / [place] Tel , Service support , Lumbar Spine CT 12/24/23 19:35 IMPRESSION: No evidence of fracture or subluxation. Electronically Signed: Samina Flowers MD at 20:23 EDT , Pelvis X-Ray 12/24/23 19:44 IMPRESSION: No evidence of fracture. Electronically Signed: Samina Flowers MD at 20:25 EDT , Wrist X-Ray 12/24/23 19:44 IMPRESSION: Comminuted distal radius fracture likely intra-articular. Electronically Signed: Samina Flowers MD at 20:26 EDT , Discharge Plan Triage Chief Complaint: Fall ED Provider: Jerod Roe Dx/Rx/DC Orders Clinical Impression: Fall, Acute cervical myofascial strain, Acute lumbar myofascial strain, Fracture of left wrist, Head injury Instructions: ED Back Sprain/Strain, ED Fracture, Wrist, General Prescriptions: New oxycodone-acetaminophen 5-325 mg tablet 1 tab PO Q6H PRN PRN (Reason: Pain) 3 Days Qty: 12 0RF No Action coenzyme Q10 [CoQ-10] 100 mg capsule 100 mg PO DAILY donepezil 10 mg tablet 10 mg PO QHS Qty: 30 6RF memantine 7 mg capsule,sprinkle,ER 24hr 7 mg PO DAILY Qty: 7 0RF Rx Instructions: Week #1 memantine 14 mg capsule,sprinkle,ER 24hr 14 mg PO DAILY Qty: 7 0RF Rx Instructions: Week #2 memantine 21 mg capsule,sprinkle,ER 24hr 21 mg PO DAILY Qty: 7 0RF Rx Instructions: Week #3 memantine 28 mg capsule,sprinkle,ER 24hr 28 mg PO DAILY Qty: 30 6RF Rx Instructions: Week #4 and thereafter red yeast rice 600 MG capsule 1,200 mg PO DAILY ibuprofen 200 MG tablet 200 mg PO PRN PRN (Reason: Pain Or Fever) Primary Care Provider: Aaron Ross Referrals: Aaron Ross MD [Primary Care Provider] - 1 Week Dharmesh Iyer MD [Med Staff - Active Staff] - As soon as possible Print Language: Uzbek Disposition Disposition: Home, Self Care
[2023-12-24] MEDS: Morphine 4 MG/ML Syringe IV (19:24)
[2023-12-24] MEDS: Ondansetron 4 MG/2 ML Vial IV (19:24)
--- NOTE | 2023-12-24 19:35 | CT_ITS ---
INDICATION: trauma EXAMINATION: CT LUMBAR SPINE - CT Spine Lumbar W/O Contrast Injection TECHNIQUE: Helically acquired images were obtained of the lumbar spine. 2D reformats were reviewed. A radiation dose optimization technique was used for this scan. The protocol utilizes one or more of the following dose reduction techniques: automated exposure control, adjustment of mA and/or kV according to patient size,and/or use of iterative reconstruction technique. IV Contrast dosage and agent: None. RADIATION DOSAGE (If Supplied By Facility): CTDIvol = ( 15.54 ) mGy, DLP = ( 502.01 ) mGycm COMPARISON: None. FINDINGS: ALIGNMENT: No subluxation. MINERALIZATION: Osteopenia. VERTEBRAL BODIES: No fracture or acute abnormality. Small sclerotic focus in the upper sacrum and right iliac wing may be bone islands. DISC SPACES: Mild disc space narrowing and osteophytes at essentially all levels. POSTERIOR ELEMENTS: Facet arthropathy at all levels. SPINAL CANAL: Maintained. PARASPINAL SOFT TISSUES: Unremarkable. OTHER: None. CT/Spine Lumbar without Contrast IMPRESSION: No evidence of fracture or subluxation. Electronically Signed: Samina Flowers MD at 20:23 EDT ,
--- NOTE | 2023-12-24 19:35 | CT_ITS ---
INDICATION: trauma EXAMINATION: CT CERVICAL SPINE - CT Spine Cervical W/O Contrast Injection TECHNIQUE: Helically acquired images were obtained of the cervical spine. 2D reformatted images were reviewed. The protocol utilizes one or more of the following dose reduction techniques: automated exposure control, adjustment of mA and/or kV according to patient size,and/or use of iterative reconstruction technique. IV Contrast dosage and agent: None. RADIATION DOSAGE (If Supplied By Facility): CTDIvol = ( 14.49 ) mGy, DLP = ( 292.17 ) mGycm COMPARISON: None. FINDINGS: ALIGNMENT: Minimal anterior subluxation of C3 on C4, and C4 on C5. MINERALIZATION: Normal. VERTEBRAL BODIES: No fracture or acute abnormality. DISC SPACES: Disc space narrowing with osteophytes most pronounced C5-C7. POSTERIOR ELEMENTS: Facet arthropathy at multiple levels. SPINAL CANAL: Maintained. PARASPINAL SOFT TISSUES: Unremarkable. OTHER: None. CT/Spine Cervical without Contras IMPRESSION: No evidence of fracture or traumatic subluxation. Minimal anterolisthesis at C3-4 and C4-5 likely secondary to the degenerative changes. Electronically Signed: Samina Flowers MD at 20:20 EDT ,
--- NOTE | 2023-12-24 19:35 | CT_ITS ---
INDICATION: trauma EXAMINATION: CT BRAIN - CT Head or Brain W/O Contrast Injection TECHNIQUE: Multiple axial images were obtained of the head without intravenous contrast. The protocol utilizes one or more of the following dose reduction techniques: automated exposure control, adjustment of mA and/or kV according to patient size,and/or use of iterative reconstruction technique. IV Contrast dosage and agent: None. RADIATION DOSAGE (If Supplied By Facility): CTDIvol = ( 44.99 ) mGy, DLP = ( 779.24 ) mGycm COMPARISON: None. FINDINGS: BRAIN: No acute bleed. No edema. Decreased attenuation in the periventricular white matter bilaterally. Snider-white matter differentiation is maintained. Arterial calcifications. VENTRICLES AND SULCI: The ventricles are not dilated. The sulci are prominent. EXTRA-AXIAL: No hemorrhage, fluid collection, or mass. CALVARIUM / SKULL BASE: Unremarkable. FACE/SINUSES: Unremarkable. SOFT TISSUES: Unremarkable. CT/Brain/Head without Contrast IMPRESSION: No acute abnormality. Chronic microvascular ischemic disease. Electronically Signed: Samina Flowers MD at 20:16 EDT ,
--- NOTE | 2023-12-24 19:44 | RAD_ITS ---
INDICATION: trauma EXAMINATION/TECHNIQUE: X-RAY - LEFT XR Wrist Min 3 Views 3 VIEWS COMPARISON: FINDINGS: BONES: Acute comminuted fracture distal radius with dorsal angulation of the distal fragment and mild impaction. Component of fracture may extend to the articular surface. JOINTS: No dislocation. SOFT TISSUES: Soft tissue swelling. RAD/Wrist min 3 Views IMPRESSION: Comminuted distal radius fracture likely intra-articular. Electronically Signed: Samina Flowers MD at 20:26 EDT ,
--- NOTE | 2023-12-24 19:44 | RAD_ITS ---
INDICATION: trauma EXAMINATION/TECHNIQUE: X-RAY - XR Pelvis 1 or 2 Views COMPARISON: None. FINDINGS: Single view pelvis. No fracture demonstrated. The femoral heads are normal in contour. No dislocation at the hips. Stool obscures the sacrum. RAD/Pelvis 1 or 2 Views IMPRESSION: No evidence of fracture. Electronically Signed: Samina Flowers MD at 20:25 EDT ,
[2023-12-24 20:49] VITALS: BP 146/70; PULSE 78; RESP 16; TEMP 36.6; O2SAT 98
== END 2023-12-24 20:50 | disposition home or self-care (01) ==
PROVIDERS: Emergency Provider Emergency Medicine; PCP Family Medicine; Visit Provider Emergency Medicine
DX: S16.1XXA Strain of muscle, fascia and tendon at neck level, initial encounter (principal); S39.012A Strain of muscle, fascia and tendon of lower back, initial encounter; S62.92XA Unspecified fracture of left hand, initial encounter for closed fracture; S09.90XA Unspecified injury of head, initial encounter; W01.0XXA Fall on same level from slipping, tripping and stumbling without subsequent striking against object, initial encounter
CPT/HCPCS: 70450; 72125; 72131; 72170; 73110; 96374; 96375; 99283; A4216; J2405

== ENCOUNTER 2024-01-04 12:14 | Observation (INO) | payer MEDICARE, OTHER, SELFPAY ==
[2024-01-04] VITALS (14 sets, daily range): BP systolic 131–162; BP diastolic 58–86; PULSE 63–83; RESP 14–16; TEMP 36.2–37; O2SAT 93–98; BMI 22.4
--- NOTE | 2024-01-04 07:49 | EKG12_ITS ---
Test Reason : PREOP Blood Pressure : / mmHG Vent. Rate : 063 BPM Atrial Rate : 063 BPM P-R Int : 164 ms QRS Dur : 072 ms QT Int : 426 ms P-R-T Axes : 047 004 059 degrees QTc Int : 435 ms Normal sinus rhythm Normal ECG No previous ECGs available Confirmed by DEVORA TORIBIO, FELECIA ([id number]), editor managing newspaper ANDREA ALEX ([id number]) on 01/07/2024 10:42:17 A M Referred By: Brandon Ross Confirmed By:CHELSEA LOZOYA MD
--- NOTE | 2024-01-04 08:12 | PCM.PRE.AN2 ---
ASA Classification* ASA Classification ASA Classification: 2 and 3 Assessment & Plan Anesthesia* Anesthesia Assessment Anesthesia Assessment: Discussed sedation and/or anesthesia options, risks, benefits, and alternatives with patient/parents/legal guardian/POA. Questions invited. The patient/parents/legal guardian/POA seems to understand and agrees to proceed with anesthesia plan. Reviewed the physical assessment, medical history, allergy history and patient home medications list prior to surgery/procedure/anesthetic and documented any changes. Performed airway and anesthesia risk assessments. Anesthesia Type Anesthesia Type: General (see written pre anesthesia record for full assessment) Anesthesia Focused Assessment* Temperature: 97.8 F Pulse Rate: 69 Blood Pressure: 135/64 Respiratory Rate: 16 Pulse Ox: 98 Airway Assessment Mouth opens: >3 cm Mallampati Score: II Focused Labs Anesthesia Preop lab: CBC WBC 8.5 K/mm3 (4.4-11.0) 07/29/21 13:53 RBC 5.03 M/mm3 (4.2-5.4) 07/29/21 13:53 Hgb 15.1 g/dL (12.0-15.0) H 07/29/21 13:53 Hct 42.2 % (37-47) 07/29/21 13:53 Plt Count 331 K/mm3 (150-450) 07/29/21 13:53 CHEMISTRY Potassium 3.8 mmol/L (3.5-5.1) 04/11/21 08:56 Sodium 140 mmol/L (136-145) 04/11/21 08:56 BUN 12 mg/dL (7-18) 04/11/21 08:56 Creatinine 0.73 mg/dL (0.55-1.02) 04/11/21 08:56 Glucose 90 mg/dL (74-106) 04/11/21 08:56 TSH 2.46 uIU/mL (0.358-3.74) 04/11/21 08:56 COAG PT 12.5 SECONDS (11.7-14.9) 09/03/15 11:51 Pre-Assessment Diagnosis/Proposed Procedure Planned Operative Procedure(s): ORIF DIATAL RADIUS BILAT Anesthesia History 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 When Was Last Pacemaker Check QUESTION #4 FULL TEXT: You/Your Family Experience fever (hyperthermia) with Anesthesia Last Oral Intake Last Oral intake: Last Oral Intake NPO since 22:00 01/04/24 08:08 Meds taken in AM with sips of No 01/04/24 08:08 water? Meds patient instructed to take am of surgery PONV PONV - electric distribution engineer: PONV - electric distribution engineer Female Yes 01/01/24 10:12 HX of Motion Sickness No 01/01/24 10:12 HX of N/V After Surgery No 01/01/24 10:12 Non-Smoker Yes 01/01/24 10:12 Duration of Surgery greater Yes 01/01/24 10:12 than 60 minutes Number of Risk Factors 3 01/01/24 10:12 PONV Score Moderate Risk 01/01/24 10:12 Height & Weight Height & Weight: Anesthesia: Height & Weight Height 5 ft 01/04/24 08:08 Weight: 52 kg 01/04/24 08:08 Body Mass Index (BMI) 22.4 01/04/24 08:08 Respiratory Assessment Respiratory Assessment - electric distribution engineer: Respiratory Tract Infection Hx - electric distribution engineer Hx Respiratory Tract Infection No 01/01/24 10:12 STOP Sleep Apnea STOP Sleep Apnea - electric distribution engineer: STOP Sleep Apnea - electric distribution engineer Hx Hypertension No 01/01/24 10:12 Hx Sleep Apnea No 01/01/24 10:12 CPAP No 10/20/19 10:30 BIPAP Do you snore loudly (louder No 01/01/24 10:12 than talking or can be heard Do you often feel tired/ No 01/01/24 10:12 fatigued/ sleepy during daytime? Has anyone observed you stop No 01/01/24 10:12 breathing during sleep? STOP Results Negative 01/01/24 10:12 QUESTION #5 FULL TEXT : Do you snore loudly (louder than talking or can be heard through closed doors)? Tobacco Use History Tobacco Use History - electric distribution engineer: Tobacco Use History - electric distribution engineer Tobacco Use Smoking Status Never smoker 01/01/24 10:12 Hx Tobacco Use No 01/01/24 10:12 Years Smoking Packs Smoked per Day Smoking Cessation Date was within the last 15 years Hx Smoking Cessation Date Hx Smoking Cessation Counseling Hematologic Medial History Hematologic Hx - electric distribution engineer: Hematologic Medical Hx - rewinder Hx of Blood Transfusion No 01/01/24 10:12 Hx of Transfusion in last 3 No 01/01/24 10:12 Months Date of Last Transfusion (if within last 3 months) Ever experience any problems No 01/01/24 10:12 with transfusion(s)? Specify any problems Hx of Preganancy in last 3 No 01/01/24 10:12 Months Nurse Filling Out Transfusion DSCHRIBER 01/01/24 10:12 & Questions: Date: 01/01/24 01/01/24 10:12 Time: 10:14 01/01/24 10:12 Patient unable to answer at this time (ie. confused, unrespo /Reproduction History /Reproductive History - electric distribution engineer: /Reproductive Hx- electric distribution engineer Hx Now No 01/01/24 10:12 Gestational Age (in weeks): EDC: Hx Hx Para Hx Section SAB No 01/01/24 10:12 Active Medications Active Medications: Current Medications Generic Name Dose Route Start Last Admin Trade Name Freq PRN Reason Stop Dose Admin Lactated Ringer's 1,000 mls @ 15 mls/hr 01/04/24 08:00 IV .Q48H YONIS PFSH Medical History Wears glasses Wears partial dentures Post-menopausal Cancer Forgetfulness Back pain Injury of head and neck Heartburn Non-smoker Frequent headaches High cholesterol Osteopenia Cataracts, bilateral Ductal carcinoma in situ (DCIS) of left breast Home Medications ?Medication ?Instructions ?Recorded ?Last Taken ?Type ibuprofen 200 mg tablet 200 mg PO PRN PRN Pain Or Fever 10/18/19 Unknown History coenzyme Q10 100 mg capsule 100 mg PO DAILY 07/29/21 Unknown History (CoQ-10) donepezil 10 mg tablet 10 mg PO QHS #30 tabs 07/16/23 Unknown Rx atorvastatin 10 mg tablet 10 mg PO QHS cholesterol 01/01/24 Unknown History magnesium 250 mg tablet 250 mg PO MOWEFR 01/01/24 Unknown History memantine 28 mg capsule 28 mg PO DAILY 01/01/24 Unknown History sprinkle,extended release 24hr multivitamin (Daily Multi-Vitamin 1 tab PO DAILY 01/01/24 Unknown History tablet) tramadol 50 mg tablet 50 mg PO DAILY PRN PRN pain 01/01/24 Unknown History vitamins A,C,O-kdzw-zgivaj 4,296 1 cap PO MOWEFR 01/01/24 Unknown History mcg-226 mg-90 mg capsule (PreserVision AREDS) Allergy/AdvReac Type Severity Reaction Status Date / Time Penicillins (PCN) AdvReac PT UNSURE Verified 01/04/24 08:07 OF REACTION Family History Mother Breast cancer Heart disease Father Hypertension TIA (transient ischemic attack) Brother Hypertension Aunt Breast cancer Uncle Lung cancer Surgical History History of lumpectomy of left breast (~10/2019) S/P cataract extraction H/O breast biopsy History of bladder suspension procedure Social History Smoking Status: Never smoker Electronic Cigarette Use: not used second hand exposure: No alcohol intake: current alcohol intake frequency: holidays/special occasions only Alcohol type: wine substance use type: does not use what type of physical activity do you participate in: walking frequency: daily jenny/evangelical: None seatbelt use: always Review of Systems (Anesthesia) ROS Narrative System reviewed and no additional complaints, except as documented.
[2024-01-04] MEDS: Lactated Ringers 1,000 ML 15 ML IV (08:18)
--- NOTE | 2024-01-04 09:15 | RAD_ITS ---
HISTORY: DISTAL RADIUS ORIF COMPARISON: December 24, 2023 radiograph TECHNIQUE: A total of 2 fluoroscopic images were saved without a radiologist present. FINDINGS: Images demonstrate volar distal radial internal fixation with plate and screw complex. Improved distal radial alignment. Displaced ulnar styloid fracture noted.. Total fluoroscopy time: 28 seconds Cumulative air kerma: 0.40 mGy RAD/Wrist min 3 Views IMPRESSION: Fluoroscopic assistance for distal radial internal fixation. Ulnar styloid fracture. Please see operative report for additional information. Electronically Signed: Gilberto Wheeler MD at 3:27 EDT ,
--- NOTE | 2024-01-04 09:45 | PCM.HP.STD ---
HPI - General HPI Narrative This is an 83-year-old female seen in the outpatient setting after emergency room follow-up after a fall on bilateral outstretched hands. She did strike her head without loss consciousness. Injury was sustained on December 24, 2023. X-rays in the emergency department revealed a fractured left distal radius. Splint was applied. Patient began to develop right wrist pain in the coming days later and went to an urgent care for evaluation or x-rays revealed a right distal radius fracture. She was splinted and followed up in our office. She was provisionally casted with the left wrist and resplinted on the right. I reviewed the case and offered surgical intervention to expedite independence with regaining function of her hands and wrists. I saw the patient in the office on 01/01/2024. Family was present and expressed their concerns with home care with the patient and requiring 24-hour assistance for her activities of daily living. She denies any other injuries at this time. Denies any fevers, chills, nausea vomiting, chest pain or shortness of breath. Patient was seen evaluated bedside this morning preoperatively. She denies any new medications, allergies or recent illness. [facility] Medical History Wears glasses Wears partial dentures Post-menopausal Cancer Forgetfulness Back pain Injury of head and neck Heartburn Non-smoker Frequent headaches High cholesterol Osteopenia Cataracts, bilateral Ductal carcinoma in situ (DCIS) of left breast Home Medications ?Medication ?Instructions ?Recorded ?Last Taken ?Type ibuprofen 200 mg tablet 200 mg PO PRN PRN Pain Or Fever 10/18/19 Unknown History coenzyme Q10 100 mg capsule 100 mg PO DAILY 07/29/21 Unknown History (CoQ-10) donepezil 10 mg tablet 10 mg PO QHS #30 tabs 07/16/23 Unknown Rx atorvastatin 10 mg tablet 10 mg PO QHS cholesterol 01/01/24 Unknown History magnesium 250 mg tablet 250 mg PO MOWEFR 01/01/24 Unknown History memantine 28 mg capsule 28 mg PO DAILY 01/01/24 Unknown History sprinkle,extended release 24hr multivitamin (Daily Multi-Vitamin 1 tab PO DAILY 01/01/24 Unknown History tablet) tramadol 50 mg tablet 50 mg PO DAILY PRN PRN pain 01/01/24 Unknown History vitamins A,C,I-qqxg-kqybzh 4,296 1 cap PO MOWEFR 01/01/24 Unknown History mcg-226 mg-90 mg capsule (PreserVision AREDS) Allergy/AdvReac Type Severity Reaction Status Date / Time Penicillins (PCN) AdvReac PT UNSURE Verified 01/04/24 08:07 OF REACTION Family History Mother Breast cancer Heart disease Father Hypertension TIA (transient ischemic attack) Brother Hypertension Aunt Breast cancer Uncle Lung cancer Surgical History History of lumpectomy of left breast (~10/2019) S/P cataract extraction H/O breast biopsy History of bladder suspension procedure Social History Smoking Status: Never smoker Electronic Cigarette Use: not used second hand exposure: No alcohol intake: current alcohol intake frequency: holidays/special occasions only Alcohol type: wine substance use type: does not use what type of physical activity do you participate in: walking frequency: daily jenny/buddhism: None seatbelt use: always ROS ROS Narrative 12 point review systems obtained, negative as otherwise noted HPI. Vital Signs Vital Signs Vital Signs: 01/04/24 08:08 01/04/24 08:08 01/04/24 08:12 Temperature 97.8 F 97.8 F Temperature Source Temporal Pulse Rate 69 69 Respiratory Rate 16 16 Respiratory Pattern Normal Blood Pressure 135/64 H 135/64 H Blood Pressure Mean 87 Blood Pressure Source Monitor Blood Pressure Position Semi-Fowlers Blood Pressure Location Right Arm Pulse Ox 98 98 Oxygen Delivery Method Room Air Weight Weight: 114 lb 10.246 oz Body Mass Index (BMI) 22.4 Physical Exam Narrative General -A&Ox3, NAD, appears stated age. Vital signs stable, afebrile. Respiratory -normal work of breathing, no intercostal retractions. CV -pulses regular, brisk capillary refill ?4 limbs. Abdomen-soft, nontender, nondistended. No guarding, rigidity, rebound tenderness. Musculoskeletal/neurologic -bilateral upper extremity-short arm splint/cast are in place. Skin is intact circumferentially. Splints and cast removed. Cardinal motions of bilateral hands are intact. Brisk capillary fill in the fingertips. Sensation tact light touch median/ulnar/radial nerve distributions. Range of motion testing deferred. Radial pulse 2+. Assessment & Plan Assessment/Plan (1) Distal radius fracture, right: PLAN: I recommended surgical intervention of bilateral distal radius fracture ORIF. Risks, benefits, alternatives to procedure were reviewed with the patient at length and she agreed to proceed. Risks included but are not limited to bleeding, infection, loss of life or limb, need for additional surgery, persistent pain, nonhealing bone or wounds, neurovascular injury, DVT or PE, risk of anesthesia, stiffness, malunion, ligament or tendon injury. Informed sent obtained in the outpatient setting. Plan to keep the patient overnight in the hospital in observation status. We will order therapy and determine next steps with possible placement. (2) Distal radius fracture, left: PLAN: See above
[2024-01-04] MEDS: Cefazolin 2 GM in 0.9% Normal Saline (100mL Bag) 100 ML IV (09:56)
--- NOTE | 2024-01-04 10:45 | RAD_ITS ---
EXAM: FL FLUOROSCOPY < 1 HOUR CLINICAL INDICATION: DISTAL RADIUS ORIF TECHNIQUE: Fluoroscopic images performed in multiple projections. A total of 5 fluoroscopically guided spot images were obtained. Fluoroscopic guidance was provided by a physician. A total of 27.1 seconds of fluoroscopy time was utilized for a dose of 0.44 mGy cm COMPARISON: No relevant prior studies available. FINDINGS: BONES/JOINTS: Images demonstrate plate and screw fixation of the distal radius with good alignment in length. Ulnar styloid fracture. SOFT TISSUES: Soft tissue swelling. RAD/Wrist min 3 Views IMPRESSION: Final images demonstrate plate and screw fixation of distal radial fracture with good alignment in length. Electronically Signed: João Avila MD at 2:50 EDT ,
--- NOTE | 2024-01-04 11:53 | PCM.POST.ANE ---
Anesthesia: Postop Eval I Current Vital Signs Temperature: 97.6 F Pulse Rate: 82 Blood Pressure: 160/70 Respiratory Rate: 14 Pulse Ox: 95 Oxygen Delivery Method: Room Air Assessment Airway patent: Yes Spontaneous unlabored respirations: Yes Mental status: Awake and Calm nausea: No Vomiting: No Anesthesia Complication: No Fluid Hydration Crystalloid volume administer (ml): 1,000 Total IV fluid infused: 1,000 Progress Note Anesthesia document: Postop Eval 1 completed: Yes
--- NOTE | 2024-01-04 12:16 | PCM.OPRPT ---
Report of Operation Date of Procedure: 01/04/24 Description of Surgical Findings:: Preoperative diagnosis: Bilateral distal radius fracture Postoperative diagnosis: Bilateral distal radius fracture Procedure: Open reduction internal fixation bilateral extra-articular distal radius fractures Surgeon: Brandon Ross DO assistant counsel: Leslie Celis PA-C Anesthesia: General endotracheal with bilateral axillary blocks Anesthesiologist: Dr. Lau Complications: None Drains: None Estimated blood loss: 20 cc Urinary output: None recorded IV fluids: Per anesthesia record Specimens: None Surgical implants: 3.5 mm volar distal radius locking plate right and left respectively, 3-hole combination of cortical and locking screws Surgical indications: This 83-year-old female sustained a ground-level fall on bilateral outstretched hands on December 24, 2023. She was splinted and followed up in our office. Surgical intervention was offered for her bilateral distal radius fractures in hopes to regain independence faster with early range of motion. I recommended surgical intervention of bilateral distal radius fracture ORIF. Risks, benefits, alternatives to procedure were reviewed with the patient at length and she agreed to proceed. Risks included but are not limited to bleeding, infection, loss of life or limb, need for additional surgery, persistent pain, nonhealing bone or wounds, neurovascular injury, DVT or PE, risk of anesthesia, stiffness, malunion, ligament or tendon injury. Informed consent obtained in the outpatient setting. Description of procedure: Patient was seen in preoperative holding area. She was identified by name, medical record number, date of . The operative extremities were marked with a surgical marker. We confirmed informed consent with the patient and all questions were answered to his satisfaction. Axillary blocks were administered bilaterally by anesthesia staff prior to the procedure. At time of her procedure, patient was brought to the operative suite and positioned supine on a standard operating table. All bony prominences were well-padded. General anesthesia was administered. After adequate anesthesia, a well-padded pneumatic tourniquet was applied to the upper upper arms of both extremities. We first our attention to the right side. We then spun the bed 90 degrees. We prepped and draped the right upper extremity in a normal, sterile orthopedic fashion. We then performed a timeout with all parties in attendance in agreement the side, site, and operation be performed. No concerns were voiced and we elected to proceed. 2 g Ancef was administered for antibiotic prophylaxis prior to the incision by anesthesia staff. I then exsanguinated the right upper extremity with an Esmarch bandage. Tourniquet was inflated to 250 mmHg which remained up for 27 minutes. Esmarch was removed. I planned a standard FCR approach over the flexor carpi radialis tendon along the volar wrist. Skin was sharply incised with a 15 blade scalpel down to the level of the tendon sheath. The FCR tendon sheath was identified and split longitudinally in line with the incision. I then retracted the FCR tendon ulnarly, split the floor of the tendon sheath in line with the incision. The flexor pollicis longus muscle belly was then encountered and retracted ulnarly. The pronator quadratus was then encountered. A self-retaining retractor was placed deep. I performed an L-shaped tenotomy of the pronator quadratus and subperiosteally elevated it ulnarly. This exposed the fracture site. Fracture was then anatomically reduced with assistance of longitudinal traction and volar translation of the carpus. Percutaneous K wires placed to the radial styloid. I selected a narrow 3.5 mm volar locking plate. This was held in place provisionally with K wires. Correct placement was noted on orthogonal fluoroscopy. I then compressed the plate to bone with a cortical screw in the shaft oblong hole. Locking screws were then used to fill the distal cluster. Additional cortical screws were placed proximally. The wound was leila irrigated normal saline solution. Tourniquet was deflated. Hemostasis was excellent. K wires were removed. Final tightening was performed with torque limiting screwdriver. Orthogonal fluoroscopy confirmed appropriately sized and positioned implants, and a anatomically reduced fracture. Dermis was then reapproximated buried 3-0 Vicryl suture. Skin was finally reapproximated subcuticular 4-0 Monocryl. Skin glue was applied. A sterile compression dressing was applied. We then turned our attention to the left upper extremity. I then exsanguinated the left upper extremity with an Esmarch bandage. Tourniquet was inflated to 250 mmHg which remained up for 22 minutes. Esmarch was removed. I planned a standard FCR approach over the flexor carpi radialis tendon along the volar wrist. Skin was sharply incised with a 15 blade scalpel down to the level of the tendon sheath. The FCR tendon sheath was identified and split longitudinally in line with the incision. I then retracted the FCR tendon ulnarly, split the floor of the tendon sheath in line with the incision. The flexor pollicis longus muscle belly was then encountered and retracted ulnarly. The pronator quadratus was then encountered. A self-retaining retractor was placed deep. I performed an L-shaped tenotomy of the pronator quadratus and subperiosteally elevated it ulnarly. This exposed the fracture site. Fracture was then reduced with assistance of longitudinal traction and volar translation of the carpus. Percutaneous K wires placed to the radial styloid. I selected a narrow 3.5 mm volar locking plate. This was held in place provisionally with K wires. Correct placement was noted on orthogonal fluoroscopy. I then compressed the plate to bone with a cortical screw in the shaft oblong hole. Locking screws were then used to fill the distal cluster. Additional cortical screws were placed proximally. The wound was leila irrigated normal saline solution. Tourniquet was deflated. Hemostasis was excellent. K wires were removed. Final tightening was performed with torque limiting screwdriver. Orthogonal fluoroscopy confirmed appropriately sized and positioned implants, and ananatomically reduced fracture. Dermis was then reapproximated buried 3-0 Vicryl suture. Skin was finally reapproximated subcuticular 4-0 Monocryl. Skin glue was applied. A sterile compression dressing was applied. Bilateral short arm volar wrist splints were applied in slight extension. Patient was awakened from anesthesia. She was extubated in the operative suite. She was transferred to her hospital bed and subsequently to PACU in stable condition. Need for skilled certified registered dental assistant: Leslie Celis PA-C was critical to the outcome of the case. During the course of the procedure the physician certified registered dental assistant played a vital role. Her intimate knowledge of my steps in the procedure aided in safe and expedient completion of the procedure. The PA played a vital role in positioning particularly in obtaining the appropriate positioning. The PA was also vital in the retraction of soft tissues during the exposure and protecting vital structures. The PA was also vital and obtaining fracture reduction and assisting with hardware placement. She also played a vital role in closure and splint application with my direct supervision. Post Operative Plan: Weightbearing: Nonweightbearing operative extremity Antibiotics: 2 g Ancef x 1 dose preoperatively DVT Prophylaxis: Aspirin 81 mg twice daily for DVT prophylaxis x 3 weeks Jett: None Dressing: Maintain splint, keep it clean dry and intact until follow-up X-Rays: 2 weeks postop in the office Pain Medication: Scheduled Tylenol and naproxen, as needed oxycodone Follow-up: Likely plan on 7 day follow-up and transition to wrist braces at that time
[2024-01-04] MEDS: Acetaminophen 500 MG Tablet 1000 MG PO ×2 (13:16→21:13)
--- NOTE | 2024-01-04 14:24 | CASEMGMT ---
Social Work SW met with pt to discuss advance directives.? Pt confirms she has completed a living will and health care POA naming son, Nabil, as primary agent and son, Oz, as alternate agent.? Pt notified that documents are not on file at [facility] and SW requested they be brought in for scanning into the EMR.? JIM Reinoso
--- NOTE | 2024-01-04 14:54 | CASEMGMT ---
HUSAM HUANG into pt room, pt lying in bed in no distress with son at bedside. Pt son states he lives out of state and is assisting with caring for pt until his brother and sister in law returns from vacation. Pt reports she lives in a single story condo with no steps to enter. She states prior to this fall she was I in ADLs and IADLs. She does not use AD and walked 20-30 minutes per day outside. Pt has a shower with built in seat. She also drove herself. Since her fall, pt has had 12/01 care. She has a neighbor who is a nurse who assists. Pt states she will need private help starting January 20. Provided pt and son with private duty list per request. Discussed with pt that therapy will see her and make recommendations for equipment and dc plan. Pt is interested in HHC. Made pt and son aware of expectations of HHC. Per ortho, pt can have therapy post dc from hospital. Pt reports her fall was due to her floor being slippery after cleaning it. She states she doesn't fall typically. Pt and son aware HUSAM HUANG will follow up after therapy evals tomorrow. Pt and son had all questions answered and denies further needs at this time.
[2024-01-04] MEDS: Naproxen 500 MG Tablet PO (17:03)
[2024-01-04] MEDS: Cefazolin 1 GM/50 ML BAG IV (17:28)
[2024-01-04] MEDS: Aspirin 81 MG TAB.CHEW PO (21:14)
[2024-01-04] MEDS: Atorvastatin Calcium 10 MG Tablet PO (21:14)
[2024-01-04] MEDS: oxyCODONE 5 MG Tablet PO (21:18)
[2024-01-04] MEDS: Donepezil HCl 10 MG Tablet PO (21:18)
[2024-01-05] MEDS: Morphine 2 MG/ML Syringe IV (00:35)
[2024-01-05] MEDS: Cefazolin 1 GM/50 ML BAG IV (01:56)
[2024-01-05 05:03] VITALS: BP 146/47; PULSE 68; RESP 16; TEMP 36.8; O2SAT 96
[2024-01-05] MEDS: Acetaminophen 500 MG Tablet 1000 MG PO ×2 (05:07→13:40)
--- NOTE | 2024-01-05 07:24 | PCM.PN.ORT ---
Subjective Subjective Patient is s/p open reduction internal fixation bilateral distal radius fractures with Dr. Ross 01/03/2024. Initial injury December 24, 2023. Patient resting comfortably in bed. Rates pain 3/ 10 at rest. States taking tylneol and oxycodone and naproxen as needed, and ice help to relieve pain. Patient to remain in splints at all times non weight bearing to bilateral upper extremities . Afebrile, no chest pain, shortness of breath, negative calf pain/ erythema, and no other signs of DVT. Objective Data Objective Data Vital Signs: Vital Signs Temp Pulse Resp BP Pulse Ox O2 Del Method 98.2 F 68 16 146/47 H 96 Room Air 01/05/24 05:03 01/05/24 05:03 01/05/24 05:03 01/05/24 05:03 01/05/24 05:03 01/05/24 05:03 Oxygen Delivery Method Room Air Weight: 52 kg Body Mass Index (BMI) 22.4 Intake & Output: Intake and Output for Last 24 Hours 01/03/24 01/04/24 01/05/24 23:59 23:59 23:59 Intake Total 1510 / 1810 550 / 550 Output Total 450 / 450 Balance 1060 / 1360 550 / 550 Radiography Diagnostic Testing: Radiology Impression Wrist X-Ray 01/04/24 09:15 IMPRESSION: Fluoroscopic assistance for distal radial internal fixation. Ulnar styloid fracture. Please see operative report for additional information. Electronically Signed: Gilberto Wheeler MD at 3:27 EDT , Wrist X-Ray 01/04/24 10:45 IMPRESSION: Final images demonstrate plate and screw fixation of distal radial fracture with good alignment in length. Electronically Signed: João Avila MD at 2:50 EDT , Physical Exam Narrative Patient resting comfortably in bed No signs of acute distress Satting well on room air bilateral distal radius splints intact able to wiggle all fingers sensation intact throughout cap refill < 3 seconds. Calf nontender to palpation, no erythema, no edema. Negative Homans Assessment & Plan Assessment/Plan (1) Distal radius fracture, left: PLAN: Status post open reduction internal fixation bilateral distal radius fractures 01/04/2024 1. Patient to remain in bilateral upper extremity splints. Nonweightbearing bilateral upper extremities. 2. plan for discharge this afternoon with home health. 3. Patient will follow up for post op appointment in 1 week. 4. WBC 8.5 no acute reactive leukocytosis. 5. H/H 15.1/42.2: no post operavtive anemia 6. DVT prophylaxis : Aspirin 81 mg twice daily x 3 weeks 7. Pain control: patient instructed to take tylenol 500mg 2 tablets TID. Naproxen 500 mg twice daily as needed, and oxycodone 1-2 tablets every 4-6 hours only as needed for pain control. 8. Maintain splint until follow-up. Follow-up 7 days postop x-rays in the office. Will likely transition to wrist braces at this time. (2) Distal radius fracture, right:
--- NOTE | 2024-01-05 07:30 | DCINST_ITS ---
Discharge Instructions Diet Discharge Diet: No restrictions Activity Weight Bearing Status: No weight bearing (To bilateral upper extremities. ) Dressing / Incision Call your doctor if your incision/area has: Continuous Slow Oozing, Sudden Increased Bleeding, Increased Pain/ Swelling, Increased Redness, Foul Smelling Discharge and Swelling at the incision site Call your doctor if you observe: Fever of 101 or Higher, Inability to have a bowel movement, Shortness of breath, Dizziness, Chest pain, Increased palpitations (irregular heartbeat), Calf discomfort and Uncontrolled pain Suture Line Care: Avoid Pulling/Pushing Change Dressing in: do not change dressing Remove Dressing in: do not remove dressing Cleanse incision/area with: Do not get Incision Wet Additional Dressing/Incision Instructions:: Maintain splints until follow-up in office Follow Up Care When: Follow-up in office in 7 days postop Test Results: Test results from this visit will be discussed in further detail at your follow- up appointment, if applicable. Discharge Plan Admission Admit Date/Time: 01/04/24 12:14 Attending Provider: Brandon Ross Primary Care Provider: Aaron Ross Discharge Orders/Prescriptions Prescriptions: No Action coenzyme Q10 [CoQ-10] 100 mg capsule 100 mg PO DAILY donepezil 10 mg tablet 10 mg PO QHS Qty: 30 6RF ibuprofen 200 MG tablet 200 mg PO PRN PRN (Reason: Pain Or Fever) tramadol 50 mg tablet 50 mg PO DAILY PRN PRN (Reason: pain) atorvastatin 10 mg tablet 10 mg PO QHS multivitamin [Daily Multi-Vitamin] Tablet 1 tab PO DAILY magnesium 250 mg tablet 250 mg PO MOWEFR PreserVision AREDS 4,296 mcg-226 mg-90 mg capsule 1 cap PO MOWEFR memantine 28 mg capsule,sprinkle,ER 24hr 28 mg PO DAILY Referrals / Follow Up: Aaron Ross MD [Primary Care Provider] -
[2024-01-05 08:11] VITALS: BP 131/74; PULSE 75; RESP 18; TEMP 36.2; O2SAT 94
[2024-01-05] MEDS: Memantine Hydrochloride 10 MG Tablet PO (08:15)
[2024-01-05] MEDS: oxyCODONE 5 MG Tablet PO (08:16)
[2024-01-05] MEDS: Naproxen 500 MG Tablet PO (08:16)
[2024-01-05] MEDS: Aspirin 81 MG TAB.CHEW PO (08:16)
--- NOTE | 2024-01-05 12:34 | CASEMGMT ---
RN REINA noted no PT recommended but OT recommended outpt therapy. HUSAM CM into pt room, pt would like to have therapy at [facility], she is aware that they do not have OT. Pt is agreeable to [facility] and would like a late morning or afternoon appt. Son concurs. Message with , will fax order to his office for signature. TC to [facility], spoke with Parveen, appt set up for at 3:30pm. Pt and son notified and placed on dc instructions.
--- NOTE | 2024-01-05 13:28 | CASEMGMT ---
Met with patient to complete HARVEY form. HARVEY form explained to patient who voiced understanding and signed form. Original form placed in pt?s chart and copy provided to patient. Lissette Crandall, Discharge Planning Asst
[2024-01-05 14:16] VITALS: BP 175/85; PULSE 64; RESP 18; TEMP 36.3; O2SAT 97
--- NOTE | 2024-01-06 09:09 | CASEMGMT ---
Received order signed for outpt OT from Dr. Ross's office. Faxed to [facility] at this time.
== END 2024-01-05 14:39 | disposition home or self-care (01) ==
LOC: SDC 12:50 → MS3 12:50
PROVIDERS: Admitting Provider Student in an Organized Health Care Education/Training Program; PCP Family Medicine; Referring Provider Student in an Organized Health Care Education/Training Program; Visit Provider Student in an Organized Health Care Education/Training Program
PROC: (CPT 25607; principal; 2024-01-04 09:00)
DX: S52.501A Unspecified fracture of the lower end of right radius, initial encounter for closed fracture (principal); F03.90 Unspecified dementia, unspecified severity, without behavioral disturbance, psychotic disturbance, mood disturbance, and anxiety; W19.XXXA Unspecified fall, initial encounter; E78.00 Pure hypercholesterolemia, unspecified; S52.502A Unspecified fracture of the lower end of left radius, initial encounter for closed fracture; Z79.899 Other long term (current) drug therapy; G31.84 Mild cognitive impairment of uncertain or unknown etiology
CPT/HCPCS: 25607; 01830; 64417; 73110; 76000; 93005; 94668; 96365; 96366; 96375; 97161; 97166; 99221; C1713; J7120; G0378; J2405

== ENCOUNTER 2024-02-03 11:30 | Outpatient (RCR) | payer MEDICARE, OTHER, SELFPAY ==
--- NOTE | 2024-01-13 18:57 | HP.OTEVAL ---
Patient's Visit Information Visit Information Visit Information: DIEGO KNOTT is a 83 year old F, referred to Occupational Therapy by Dr. Brandon Ross DO, with a diagnosis of distal radius fracture. Date of Evaluation: 01/13/24 Occupational Therapist: Otilia Johnson Subjective Subjective: This 83 year old female referred to OT services s/p B distal radius fx due to fall 12/24/23. Cody performed ORIF B wrist 01/04/24. pt was in cast and now presents in splint which provided this date dissolvable stitches. pt is R hand dominant. pt is currently living with family due to inability to use either UE however normally lives on own compelting all self care on own. pt requiring OT services in order to maximize ROM and strength as appropriate. Objective Objective/Observation: pt arrives with B wrists in wrist cock up from office visit earlier this date. little to no edema noted in wrists at this time. pt reports no pain at rest however does increase with movement. ROM Wrist: L 15/10 R 25/20 Opposition: opposes to all digits MP: L 0/60-70 PIP: L 0/80-90 ROM Comments: wrist L UD [address] 5 degrees wrist R UD [address] 10 degrees L composite fist D5 approx 1 cm from palm R composite fist all digits approximated L thumb oppose to D5 unable to side down to MCP supination and pronation WFL B UEs Strength Strength Comments: NT to test at later date both sides affected Edema Other: none noted on eval Sensation Sensation Comments: denies numbness or tingling Quick DASH-Disab of Arm,Shoulder& Hand Quick DASH Score: 68.1800 Goals Goal:: pt will improve B astronomy department chair strength to 20 pounds or more in order to maximize I in self care / IADL tasks pt will improve B lateral pinch strength to 5 pounds or more in order to maximize I in self care / IADL tasks pt judi improve B tripod pinch strength to 3-5 pounds or more in order to maximize I in self care / IADL tasks Goal:: Pt will improve L wrist ROM to 35/35 or more in order to perform day to day functional tasks pt will improve R wrist ROM to 35/35 or more in order to perform day to day functional tasks pt will increase L wrist UD/RD to 20/10 in order to increase day to day use of UE pt will increase R wrist UD/RD to 20/15 in order to increase day to day use of UE pt will demonstrate the ability to make full composite fist with BUEs in order to promote I in ADL and IADL tasks Goal:: pt will report 1/10 or less pain with movement of BUEs during functional tasks Goal:: pt will verbalize / demonstrate 100% accuracy in proper joint protection and positioning of B wrists during functional tasks to promote healing and decrease pain Goal:: per pt/ caregiver report pt will be able to dress/ toilet self CO in order to return to PLOF Goal:: pt will improve quick dash score by 10-15 points or more in order to promote functional use of BUEs Goal:: pt/ caregiver will demonstrate 100% accuracy in AROM HEP for BUEs by third session pt/ caregiver will demonstrate 100% accuracy in scar mobilization to B wrists by third session Rehabilitation General Assessment: This 83 year old female arrives with B distal radius fracture s/p ORIF by Dr Ross on 01/04/24. Pt presents with decreased ROM stiffness in B hands and pain with movement. scar to volar aspect of wrist. OT necessary at this time for improved ROM as well as strength as appropriate for return to functional use of BUE pt appropriate to be seen by OT 1-2x a week for 4-6 weeks. Rehabilitation Potential: Good Anticipated Interventions Anticipated Interventions: A/AAROM/PROM, Strengthening, Scar Care, Triggerpoint Release, Wound Care, Modalities, Orthoses, Joint Protection/Energy Conservation, Fine Motor Coord/Marco Antonio, ADL Training, Education re assistive Equipment, Education re Diagnosis and Home Program Visit Plan Frequency: 1-2x /Week Duration: 4-6 Weeks General Plan: AROM/AAROM/PROM strengthening scar mobilization blocking exercise TEXT: Thank you for the opportunity to evaluate your patient. For Medicare and Medicare HMO plans, please review the plan of care and approve it. It will need to be FAXED BACK to us at [phone] for Medicare purposes. Please let me know if there are questions or concerns regarding this plan of care. Physician Signature: Date:
--- NOTE | 2024-04-14 12:42 | HP.OT.NRP ---
Patient Information Patient Information: DIEGO KNOTT was seen in my office for initial evaluation on 01/13/24. The following Plan of Care was established for this patient: POC Established Initial Frequency: 1-2x /Week Initial Duration: 4-6 Weeks Plan: AROM/AAROM trigger point release scar mobilization tendon glide strengthening blocking exercise Anticipated Interventions Anticipated Interventions: A/AAROM/PROM, Strengthening, Scar Care, Triggerpoint Release, Wound Care, Modalities, Orthoses, Joint Protection/Energy Conservation, Fine Motor Coord/Marco Antonio, ADL Training, Education re assistive Equipment, Education re Diagnosis and Home Program Last Seen Last Seen: This patient was last seen in our office 02/03/24. Pertinent comments regarding their Occupational therapy will appear below: This 83 year old female seen by OT for dx of B distal radius fx with ORIF. pt seen for progression in ROM and strengthening once able as well as pain management. progress made throughout POC discharge at this time due to lapse in time since last service. At this point I will be discontinuing this patient from occupational therapy. I would be happy to see this patient again in the future if found appropriate by the physician. Thank you! Otilia Johnson
== END 2024-02-03 19:00 | disposition home or self-care (01) ==
LOC: OT 11:30
PROVIDERS: PCP Family Medicine; Referring Provider Student in an Organized Health Care Education/Training Program; Visit Provider Student in an Organized Health Care Education/Training Program
DX: Z98.890 Other specified postprocedural states (principal); S52.91XD Unspecified fracture of right forearm, subsequent encounter for closed fracture with routine healing; S52.92XD Unspecified fracture of left forearm, subsequent encounter for closed fracture with routine healing
CPT/HCPCS: 97110; 97140; 97166; 97530